=== PATIENT | male | born 1940 | race Caucasian/White ===

== ENCOUNTER 2018-05-05 17:45 | Inpatient (IN) | payer MEDICARE ==
[2018-05-05 20:15] LABS: #Basophils 0.1 thou/uL (0.0-0.2); #Eosinphils 0.2 thou/uL (0.0-0.7); #Lymphocytes 2.3 thou/uL (1.20-3.40); %Basophils 1.4 % (0.0-1.0); %Eosinophils 1.8 % (0.0-10.0); %Lymphocytes 26.9 % (21.0-51.0); %Monocytes 11.7 % (0.0-10.0); %Neutrophils 58.2 % (42.0-75.0); Mean Corpuscular HGB CONC 32.9 g/dL (32.0-36.0); Mean Corpuscular Hemoglobin 30.6 pg (27.0-31.0); Mean Corpuscular Volume 93.3 fL (78.0-98.0); Mean Platelet Volume 7.7 fL (7.4-10.4); Platelet Count 290 thou/uL (130-400); RBC Distribution Width 12.3 % (11.5-14.5); Red Blood Cell (RBC) Count 4.88 mill/uL (4.70-6.10); White Blood Cell (WBC) Count 8.7 thou/uL (4.8-10.8)
[2018-05-05 20:26] LABS: Globulin 3.5 g/dL (2.4-3.5); Protein, Total 7.3 g/dL (5.8-8.1)
[2018-05-05 20:27] LABS: ALT (SGPT) 28 U/L (8-55); AST (SGOT) 23 U/L (5-34); Albumin 3.9 g/dL (3.4-4.8); Alkaline Phosphatase 133 U/L (40-150); Anion Gap 15 mmol/L (10-20); BUN (Urea Nitrogen) 38 mg/dL (8.4-25.7); Bilirubin, Total 0.3 mg/dL (0.2-1.2); Calc. Creatinine Clearance 0 mL/min (70-130); Calcium 9.8 mg/dL (7.8-10.44); Carbon Dioxide 23 mmol/L (23-31); Chloride 100 mmol/L (98-107); Estimated GFR-MDRD 36; Glucose 286 mg/dL (83-110); Potassium 4.5 mmol/L (3.5-5.1); Sodium 133 mmol/L (136-145)
[2018-05-05] MEDS ORDERED: Piperacillin/Tazobactam 4.5 GM VIAL ONE (21:13)
[2018-05-05] MEDS ORDERED: HYDROcodone/Acetaminophen 10/325 mg Tablet ONE (22:02)
--- NOTE | 2018-05-05 22:31 | RAD ---
THREE VIEWS LEFT FOOT: 05/05/18 HISTORY: Left foot pain. Diabetic ulcer of the left big toe. FINDINGS: There is lucency and subcutaneous soft tissue swelling seen at the medial aspect of the left great to e likely related to patient's known laceration. No obvious osseous destruction is seen in this region . No fracture or dislocation is identified. A posterior calcaneal enthesophyte is seen. vascular calc ifications are seen at the ankle. IMPRESSION: 1. Findings likely related to patient's known soft tissue ulceration at the plantar and medial a spect of the left great toe. No osseous destruction is seen to suggest osteomyelitis based on this ex am. 2. No acute osseous abnormality. 3. Vascular calcifications. POS: FOZIA
[2018-05-05] MEDS ORDERED: Ondansetron PF 4 MG/2 ML Vial IVP PRN (23:10)
[2018-05-05] MEDS ORDERED: Ondansetron ODT 4 MG TAB SL PRN (23:10)
[2018-05-05] MEDS ORDERED: Sodium Chloride 0.9% 1,000 ML IV SCH (23:10)
[2018-05-05] MEDS ORDERED: Vancomycin HCl 1 GM in Premix Bag 1 BAG IVPB SCH (23:45)
[2018-05-05 23:58] VITALS: BMI 29.3
[2018-05-06] MEDS ORDERED: Calcium Carbonate 500 MG ChewTAB PO PRN (01:31)
[2018-05-06] MEDS ORDERED: Dextrose 5% in Water 1,000 ML IV PRN (01:31)
[2018-05-06] MEDS ORDERED: Bisacodyl 5 MG TAB PO PRN (01:31)
[2018-05-06] MEDS ORDERED: Dextrose 50% Abboject 50 ML SYRINGE SLOW IVP PRN (01:31)
[2018-05-06] MEDS ORDERED: Senokot S 8.6-50 MG TAB PO PRN (01:31)
--- NOTE | 2018-05-06 02:07 | PDOC.EVN ---
Event Note - Event Note Event Note: h&p dictation #[id number] pt failed outpatient levaquin - here for inpt adm, empiric vanc, pip-abelardo
--- NOTE | 2018-05-06 02:45 | HP ---
PRIMARY CARE PHYSICIAN: Dr. Aidan Harvey. CHIEF COMPLAINT: Left first metatarsal cellulitis. HISTORY OF PRESENT ILLNESS: This is a 77-year-old male with a known history of type 2 diabetes, hypertension, hyperlipidemia, who presents with a chief complaint of infection to his left big toe. The patient states that the infection initially started approximately 3 months ago and initially involved only the bottom aspect of the first metatarsal. However, over the last 3 months it has been progressively worse with increasing discomfort of the great toe, particularly with ambulation. Over the last week, it has been accompanied by erythema and over the last 2 days despite oral Levaquin, it has gotten worse. At the time of my evaluation, the patient has an area of ulceration at the base of the first metatarsal with surrounding erythema that extends circumferentially across the top of that same digit. REVIEW OF SYSTEMS: Constitutional: No significant weight gain or loss. The patient denies any fevers or chills. HEENT: No headaches, vision changes, lightheadedness, or dizziness. Cardiovascular: Denies any chest pain, chest pressure, left-sided arm numbness or tingling. Respiratory: Denies any congestion, cough, shortness of breath, or recent upper respiratory infection. Gastrointestinal: Denies any nausea, vomiting, abdominal pain issues with diarrhea or constipation. Musculoskeletal: Denies any myalgias or arthralgias , other than the left great toe as described above. Genitourinary: Denies any changes in urinary color, quantity, quality, frequency, or odor. Remainder of the review of systems otherwise negative. PAST MEDICAL HISTORY: As per above, significant for; 1. Type 2 diabetes. 2. Hypertension. 3. Hypercholesterolemia. 4. Depression. PAST SURGICAL HISTORY: No prior surgeries. HOME MEDICATIONS: Please see the EMR for full details, patient's current home list includes the following; 1. Insulin 70/30 60 units subcu b.i.d. and a.c. 2. Pravastatin 40 mg p.o. at bedtime. 3. Citalopram 40 mg p.o. daily. 4. Amlodipine 5 mg p.o. daily. 5. Alprazolam 0.5 mg p.o. daily. ALLERGIES: No known drug allergies. FAMILY HISTORY: The patient denies any known family history of recurrent ulcers or infections. SOCIAL HISTORY: The patient is , has active tobacco use, but no alcohol use. Denies any illicit drug use. He states that they have both cats and dogs at home. The dogs are not much of "lickers" but the cats are actually kittens and rather playful, so he is not sure if there may have been any contact between his ulcer and the pets. He indicates his would be his medical decision maker if he is unable to make his own medical decisions. PHYSICAL EXAMINATION: GENERAL: The patient is awake, alert, conversant, in no acute distress, lying in the hospital bed. HEENT: Normocephalic, atraumatic. Equal ocular motions are intact, moist mucous membranes. CARDIOVASCULAR: S1, S2. No murmurs, rubs, or gallops. Pulses 2+ bilateral upper extremities, no pitting pedal edema. RESPIRATORY: Reasonable air movement. No conversational dyspnea. No wheezes, rales, or rhonchi. Grossly clear to auscultation bilaterally. GASTROINTESTINAL: Positive bowel sounds. Soft, nontender to palpation. MUSCULOSKELETAL: Moving all 4 extremities equally. Examination of the first metatarsal of the left foot indicates a small area of erythema that extending from medially to laterally around the top of the foot. The bottom of the metatarsal, there is an area of dried ulceration, perhaps with a layer of eschar noted on top. No active purulence. LABORATORY DATA AND IMAGING: WBC 8.7, hemoglobin 15.0, hematocrit 45.5, platelets 290,000. Sodium 133, potassium 4.5, chloride 100, bicarbonate 23, BUN 38, creatinine 1.82, glucose 286. Lactic acid 1.9, calcium 9.8, total bilirubin 0.3, AST 23, ALT 28, alkaline phosphatase 133. CRP 0.98, total protein 7.3, albumin 3.9. Foot x-ray demonstrates "findings likely related to the patient's known soft tissue ulceration at the plantar and medial aspects of the left great toe. No osseous destruction is seen to suggest osteomyelitis based on this exam. No acute osseous abnormality. Vascular calcifications." ASSESSMENT AND PLAN: A 77-year-old male presenting with cellulitis of the first left metatarsal. 1. Concern for cellulitis/diabetic ulcer in the first left metatarsal. The patient has been started on empiric antibiotics in the emergency department to include vancomycin and piperacillin, tazobactam. Wound Care consultation is appreciated. No evidence at this point in time of osteomyelitis. We will continue to monitor clinically. 2. Type 2 diabetes. Continue the patient on his home 70/30. Continue to serially check the patient's serum glucose with sliding scale insulin as needed. 3. Acute kidney injury, suspect likely prerenal etiology. Gentle hydration with repeat renal function labs in the morning. 4. Diet: Diabetic. 5. Activity: As tolerated. 6. Deep venous thrombosis prophylaxis: Enoxaparin. MTDD
[2018-05-06] MEDS: Piperacillin/Tazobactam 2.25 GM in Sodium Chloride 0.9% 100 ML IVPB SCH ×4 (03:33→20:39)
[2018-05-06] MEDS ORDERED: Piperacillin/Tazobactam 3.375 GM in Sodium Chloride 0.9% 100 ML IVPB SCH (05:00)
[2018-05-06 05:21] LABS: #Basophils 0.1 thou/uL (0.0-0.2); #Eosinphils 0.2 thou/uL (0.0-0.7); #Lymphocytes 2.7 thou/uL (1.20-3.40); #Monocytes 0.9 thou/uL (0.11-0.59); #Neutrophils 4.5 thou/uL (1.40-6.50); %Basophils 1.1 % (0.0-1.0); %Eosinophils 2.6 % (0.0-10.0); %Monocytes 10.9 % (0.0-10.0); %Neutrophils 53.5 % (42.0-75.0); Hemoglobin 13.4 g/dL (14.0-18.0); Mean Corpuscular Hemoglobin 30.6 pg (27.0-31.0); Mean Platelet Volume 8.1 fL (7.4-10.4); Platelet Count 249 thou/uL (130-400); RBC Distribution Width 12.2 % (11.5-14.5); Red Blood Cell (RBC) Count 4.36 mill/uL (4.70-6.10); White Blood Cell (WBC) Count 8.5 thou/uL (4.8-10.8)
[2018-05-06 05:43] LABS: Anion Gap 11 mmol/L (10-20); BUN (Urea Nitrogen) 35 mg/dL (8.4-25.7); Calc. Creatinine Clearance 47 mL/min (70-130); Calcium 8.7 mg/dL (7.8-10.44); Carbon Dioxide 27 mmol/L (23-31); Chloride 102 mmol/L (98-107); Estimated GFR-MDRD 43; Glucose 277 mg/dL (83-110); Potassium 4.7 mmol/L (3.5-5.1); Sodium 135 mmol/L (136-145)
[2018-05-06] MEDS: HumaLOG 300 UNITS/3 ML VIAL SC PRN (06:07)
[2018-05-06] MEDS: Insulin NPH/Reg Insulin Hm 300 UNITS/3 ML VIAL SC SCH ×2 (08:57→17:31)
[2018-05-06] MEDS: Enoxaparin Sodium 40 MG/0.4 ML SYRINGE SC SCH (08:58)
[2018-05-06] MEDS ORDERED: Prevnar 13-Val Conj/PF 0.5 ML SYRINGE IM ONE (09:00)
[2018-05-06] MEDS: Citalopram 20 MG TAB PO SCH (09:01)
[2018-05-06] MEDS: Amlodipine 5 MG TAB PO SCH (09:02)
[2018-05-06] MEDS: ALPRAZolam 0.5 MG TAB PO SCH (09:02)
[2018-05-06] MEDS ORDERED: Vancomycin HCl 1 GM in Premix Bag 1 BAG IVPB SCH (11:00)
--- NOTE | 2018-05-06 14:24 | PDOC.PN ---
- Subjective Encounter Start Date: 05/06/18 Encounter Start Time: 14:22 Mr. Kirkpatrick was seen today in follow-up of a Diabetic foot infection. He says the pain in his toe has improved. He admits his blood glucose has not been well controlled recently. - Objective Resuscitation Status: Resuscitation Status FULL:Full Resuscitation MAR Reviewed: Yes Vital Signs & Weight: Vital Signs (12 hours) Temp Pulse Resp BP BP Pulse Ox 05/06/18 12:00 98.0 F 68 16 92/52 L 95 05/06/18 10:41 102/61 05/06/18 09:02 58 L 05/06/18 08:00 94 L 05/06/18 07:44 98.0 F 58 L 12 94/51 L 94 L 05/06/18 04:40 98.1 F 59 L 20 103/54 L 92 L Weight Weight 193 lb I&O: 05/05/18 05/06/18 05/07/18 06:59 06:59 06:59 Intake Total 675 Balance 675 Result Diagrams: 05/06/18 03:52 05/06/18 03:52 Additional Labs: Accuchecks 05/06/18 05/06/18 05/05/18 11:28 04:44 23:08 POC Glucose 120 H 292 H 231 H Phys Exam - Physical Examination HEENT: PERRLA Respiratory: no wheezing, no rales, no rhonchi, clear to auscultation bilateral Cardiovascular: RRR, no significant murmur, no rub Gastrointestinal: soft, non-tender, no distention, positive bowel sounds Musculoskeletal: no edema, pulses present Pulses present but diminished + First toe left foot, with callous , and erythema Psychiatric: normal affect, A&O x 3 Skin: normal turgor, cap refill <2 seconds Dx/Plan (1) Diabetic ulcer of left foot Code(s): E11.621 - TYPE 2 DIABETES MELLITUS WITH FOOT ULCER; L97.529 - NON- PRESSURE CHRONIC ULCER OTH PRT LEFT FOOT W UNSP SEVERITY Status: Acute (2) Diabetes mellitus, type II, insulin dependent Code(s): E11.9 - TYPE 2 DIABETES MELLITUS WITHOUT COMPLICATIONS; Z79.4 - ASSISTED (CURRENT) USE OF INSULIN Status: Chronic (3) Avdnq-vp-selgwiv kidney injury Code(s): N17.9 - ACUTE KIDNEY FAILURE, UNSPECIFIED; N18.9 - CHRONIC KIDNEY DISEASE, UNSPECIFIED Status: Acute (4) Hypertension Code(s): I10 - ESSENTIAL (PRIMARY) HYPERTENSION Status: Chronic (5) Dyslipidemia Code(s): E78.5 - HYPERLIPIDEMIA, UNSPECIFIED Status: Chronic - Plan * Diabetic foot infection- continue Vancomycin and Zosyn. Will check arterial dopplers to help assess his circulation * Consult Podiatry for possible debridement * DM- blood glucos is a bit labile- will monitor while on his home dose of insulin, and titrate as needed * HTN- blood pressure is a bit low- will Observe, may need to hold Amoldipine .
--- NOTE | 2018-05-06 17:35 | ULT ---
BILATERAL LOWER EXTREMITY ARTERIOVASCULAR DUPLEX INCLUDING COLOR AND SPECTRAL DOPPLER IMAGING: Date: 05/06/18 HISTORY: 77-year-old male with history of diabetic foot infection, left great toe diabetic ulcer. TECHNIQUE: Exam performed bilaterally, including common femoral artery, profunda femoral artery, superficial fem oral artery, popliteal artery, and anterior and posterior tibial arteries and dorsalis pedis arteries . FINDINGS: On the right side, there is biphasic flow down to and including the popliteal artery and anterior tib ial artery with monophasic flow involving the posterior tibial artery, with focal area of increased v elocity in the right posterior tibial artery. On the left side, there is triphasic flow involving the common femoral artery, superficial femoral ar micheline, and popliteal artery, with biphasic flow in the profunda femoral artery. Monophasic flow involv ing the right anterior tibial artery, posterior tibial artery, and dorsalis pedis arteries. 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 Focal high velocity in the right posterior tibial art farida, indicating focal stenosis. Consider follow-up abdominal and bilateral lower extremity CT angiogram for further assessment and to evaluate for more specific areas of focal stenosis, if clinically indicated. POS: JOHNSON
[2018-05-06] MEDS: Atorvastatin Calcium 10 MG TAB PO SCH (20:39)
[2018-05-06] MEDS: Vancomycin HCl 1.25 GM in Sodium Chloride 0.9% 250 ML 250 ML IVPB SCH (22:08)
[2018-05-07] MEDS: Piperacillin/Tazobactam 2.25 GM in Sodium Chloride 0.9% 100 ML IVPB SCH ×3 (03:12→20:41)
[2018-05-07 05:59] LABS: #Basophils 0.1 thou/uL (0.0-0.2); #Eosinphils 0.2 thou/uL (0.0-0.7); #Lymphocytes 2.2 thou/uL (1.20-3.40); #Neutrophils 4.9 thou/uL (1.40-6.50); %Basophils 1.3 % (0.0-1.0); %Eosinophils 2.6 % (0.0-10.0); %Lymphocytes 25.8 % (21.0-51.0); %Monocytes 11.3 % (0.0-10.0); %Neutrophils 59.1 % (42.0-75.0); Hemoglobin 13.9 g/dL (14.0-18.0); Mean Corpuscular HGB CONC 32.4 g/dL (32.0-36.0); Mean Corpuscular Hemoglobin 30.5 pg (27.0-31.0); Mean Platelet Volume 8.2 fL (7.4-10.4); Platelet Count 245 thou/uL (130-400); RBC Distribution Width 12.4 % (11.5-14.5); Red Blood Cell (RBC) Count 4.57 mill/uL (4.70-6.10); White Blood Cell (WBC) Count 8.3 thou/uL (4.8-10.8)
[2018-05-07] MEDS: HumaLOG 300 UNITS/3 ML VIAL SC PRN (06:06)
[2018-05-07 06:27] LABS: Anion Gap 11 mmol/L (10-20); BUN (Urea Nitrogen) 17 mg/dL (8.4-25.7); Calc. Creatinine Clearance 55 mL/min (70-130); Calcium 8.6 mg/dL (7.8-10.44); Carbon Dioxide 26 mmol/L (23-31); Chloride 104 mmol/L (98-107); Estimated GFR-MDRD 51; Glucose 322 mg/dL (83-110); Potassium 4.1 mmol/L (3.5-5.1); Sodium 137 mmol/L (136-145)
[2018-05-07] MEDS: Insulin NPH/Reg Insulin Hm 300 UNITS/3 ML VIAL SC SCH ×2 (07:44→16:32)
[2018-05-07] MEDS: Citalopram 20 MG TAB PO SCH (07:46)
[2018-05-07] MEDS: Enoxaparin Sodium 40 MG/0.4 ML SYRINGE SC SCH (07:46)
[2018-05-07] MEDS: Amlodipine 5 MG TAB PO SCH (07:47)
[2018-05-07] MEDS: ALPRAZolam 0.5 MG TAB PO SCH (07:47)
--- NOTE | 2018-05-07 09:48 | CON ---
DATE OF CONSULTATION: 05/07/2018 REASON FOR CONSULTATION: Left great toe ulceration. HISTORY OF PRESENT ILLNESS: A 77-year-old male seen at bedside today in his hospital bed for left great toe ulceration. He states that the wound has been present for approximately 4 months. He had been having his daughter clean it and dress it with dressings, but over the last week it has become exquisitely tender, more erythematous and swollen, so he came to the hospital and was admitted on 05/05/2018 for IV antibiotics. He states that since he has been on IV antibiotics he has improvement in the redness and the pain is no longer present. He does have a history of diabetes with peripheral neuropathy. PAST MEDICAL HISTORY: 1. Type 2 diabetes. 2. Hypertension. 3. Hypercholesterolemia. 4. Depression. PAST SURGICAL HISTORY: No prior surgeries. HOME MEDICATIONS: 1. Insulin. 2. Pravastatin. 3. Citalopram. 4. Amlodipine. 5. Alprazolam. ALLERGIES: No known drug allergies. FAMILY HISTORY: The patient denies any known family history of recurrent ulcers or infections. SOCIAL HISTORY: The patient is , has active tobacco use, but no alcohol use, denies any illicit drug use. REVIEW OF SYSTEMS: CONSTITUTIONAL: Denies nausea, vomiting, fevers, chills at this time. PHYSICAL EXAMINATION: VITAL SIGNS: Temperature 98.2, pulse 68, respirations 22, blood pressure 127/ 62. GENERAL: The patient is seen at bedside in no acute distress. He is alert and oriented x3. CARDIOVASCULAR: Dorsalis pedis, posterior tibial pulses are faint to the left lower extremity. The skin temperature is cool to the touch. Capillary fill time is less than 3 seconds to the distal aspect of the toes. NEUROLOGICAL: Light touch protective threshold is absent globally to the left foot. DERMATOLOGIC: There is an ulceration to the plantar medial aspect of the left hallux that measures approximately 0.6 cm x 0.6 cm x 0.2 cm of depth. It had a hyperkeratotic covering with some slight maceration tissue surrounding the wound. The wound does not probe to deep tendon or bone. There is some mild erythema to the dorsal aspect of the toe extending from the wound area, but does not extend onto the foot. No areas of fluctuance, crepitus. X-rays were reviewed. No signs of osteomyelitis underlying the ulceration site. ASSESSMENT: 1. Non-pressure chronic ulceration to the left great toe. 2. Diabetes with peripheral neuropathy as well as peripheral vascular disease. PLAN: 1. Full thickness debridement of the wound base was performed today, the subcutaneous tissue layer removed all nonviable tissue and biofilm from the wound base as well as hyperkeratotic tissue from the surrounding tissues with a sterile 15 blade. The patient tolerated the procedure well. This was performed at bedside. Bandages were applied including gauze and tape today. 2. Writing wound care orders for patient to have the wound cleaned on a daily basis with normal saline or wound cleanser and then applying a Promogran dressing to the wound base with secondary gauze and tape dressing. This should be done on a daily basis and should continue on discharge. 3. The patient should follow up in the Wound Clinic as an outpatient upon discharge. 4. No surgical debridement in the operating room is necessary at this time if he is stabil on oral antibiotics he may be discharged as far as his foot goes and follow up with me in the wound clinic. 5. I would recommend a cardiovascular consult with athletic scout or the cardiovascular surgeon for further evaluation of his peripheral vascular disease to determine if any intervention is warranted. Thank you for the consultation. LYN
--- NOTE | 2018-05-07 15:37 | PDOC.PN ---
- Subjective Encounter Start Date: 05/07/18 Encounter Start Time: 15:35 Mr. Kirkpatrick was seen today in follow-up of diabetic foot infection. He says his toe is feeling much inproved. He has a lot less pain when walking. - Objective Resuscitation Status: Resuscitation Status FULL:Full Resuscitation MAR Reviewed: Yes Vital Signs & Weight: Vital Signs (12 hours) Temp Pulse Resp BP Pulse Ox 05/07/18 08:00 98.2 F 68 22 H 127/62 95 05/07/18 07:47 62 05/07/18 04:00 98.1 F 62 20 137/74 94 L Weight Admit Weight 193 lb Weight 193 lb I&O: 05/06/18 05/07/18 05/08/18 06:59 06:59 06:59 Intake Total 675 1640 Balance 675 1640 Result Diagrams: 05/07/18 03:47 05/07/18 03:47 Additional Labs: Accuchecks 05/07/18 05/07/18 05/06/18 11:58 04:01 19:21 POC Glucose 73 300 H 227 H 05/06/18 17:11 POC Glucose 78 Phys Exam - Physical Examination Respiratory: no wheezing, no rales, no rhonchi, clear to auscultation bilateral Cardiovascular: RRR, no significant murmur, no rub Gastrointestinal: soft, non-tender, no distention, positive bowel sounds Musculoskeletal: pulses present, edema present Left toes, less erythema, post debridement Dx/Plan (1) Diabetic ulcer of left foot Code(s): E11.621 - TYPE 2 DIABETES MELLITUS WITH FOOT ULCER; L97.529 - NON- PRESSURE CHRONIC ULCER OTH PRT LEFT FOOT W UNSP SEVERITY Status: Acute (2) Peripheral vascular disease in diabetes mellitus Code(s): E11.51 - TYPE 2 DIABETES W DIABETIC PERIPHERAL ANGIOPATH W/O GANGRENE Status: Acute (3) Diabetes mellitus, type II, insulin dependent Code(s): E11.9 - TYPE 2 DIABETES MELLITUS WITHOUT COMPLICATIONS; Z79.4 - SENIOR PAYROLL MANAGER (CURRENT) USE OF INSULIN Status: Chronic (4) Qtmhl-og-wnonjeu kidney injury Code(s): N17.9 - ACUTE KIDNEY FAILURE, UNSPECIFIED; N18.9 - CHRONIC KIDNEY DISEASE, UNSPECIFIED Status: Acute (5) Hypertension Code(s): I10 - ESSENTIAL (PRIMARY) HYPERTENSION Status: Chronic (6) Dyslipidemia Code(s): E78.5 - HYPERLIPIDEMIA, UNSPECIFIED Status: Chronic - Plan * Diabetic toe infection- improved- will continue IV antibiotics one more day * Podiatry input appreciated * Peripheral Vascular disease- Arterial ultrasound results were noted- will consult Vascular Surgery Prior to obtaining CTA , due to his renal function- * DM- uncontrolled- will increase his usual dose of insulin * HTN- blood pressure is controlled * Home after Vascular surgery evaluation.
[2018-05-07] MEDS: Atorvastatin Calcium 10 MG TAB PO SCH (20:41)
[2018-05-07] MEDS: diphenhydrAMINE 25 MG CAP PO PRN (20:46)
[2018-05-07] MEDS ORDERED: Vancomycin HCl 1.5 GM in Sodium Chloride 0.9% 250 ML 300 ML IVPB SCH (22:00)
[2018-05-07] MEDS: Vancomycin HCl 1.25 GM in Sodium Chloride 0.9% 250 ML 250 ML IVPB SCH (22:56)
[2018-05-08] MEDS: Piperacillin/Tazobactam 2.25 GM in Sodium Chloride 0.9% 100 ML IVPB SCH ×4 (04:14→20:29)
[2018-05-08] MEDS ORDERED: Iopamidol 370 76% 50 ML VIAL FS ONE (08:06)
[2018-05-08] MEDS: Insulin NPH/Reg Insulin Hm 300 UNITS/3 ML VIAL SC SCH ×2 (09:11→17:29)
[2018-05-08] MEDS: ALPRAZolam 0.5 MG TAB PO SCH (09:11)
[2018-05-08] MEDS: Citalopram 20 MG TAB PO SCH (09:11)
[2018-05-08] MEDS: Enoxaparin Sodium 40 MG/0.4 ML SYRINGE SC SCH (09:12)
[2018-05-08] MEDS: Amlodipine 5 MG TAB PO SCH (09:13)
[2018-05-08] MEDS: Vancomycin HCl 1 GM in Premix Bag 1 BAG IVPB SCH ×2 (11:11→21:53)
--- NOTE | 2018-05-08 11:14 | CON ---
DATE OF CONSULTATION: 05/08/2018 HISTORY OF PRESENT ILLNESS: Mr. Kirkpatrick is a pleasant 77-year-old gentleman who has no previous periphe ral vascular or cardiac history. He was admitted after having longstanding left great toe erythema, induration, and ulceration. He underwent a debridement of his foot. He has been on IV antibiotics w ith what he states is a high level of improvement of his symptomatology. He has had an ultrasound pe rformed of the left leg which showed multifocal disease of the SFA, popliteal, and tibial arteries on the left. I have been asked to see him to discuss potential revascularization options. The patient has no history of coronary artery disease, abdominal aortic aneurysm, carotid disease, or peripheral vascular disease. The patient has never smoked. PAST MEDICAL HISTORY: 1. Hypertension. 2. Hypercholesterolemia. 3. Type 2 diabetes mellitus. 4. Depression. PAST SURGICAL HISTORY: None. CURRENT MEDICATIONS: At home, 1. Insulin 70/30, 60 units b.i.d. 2. Pravastatin 40 mg at bedtime. 3. Citalopram 40 mg every day. 4. Amlodipine 5 mg every day. 5. Alprazolam 0.5 mg p.r.n. ALLERGIES: None. REVIEW OF SYSTEMS: Ten-point review of systems is negative except above. PHYSICAL EXAMINATION: GENERAL: This is a well-developed, well-nourished man, resting comfortably in bed. VITAL SIGNS: Height 5 feet 8 inches, weight is 193 pounds, temperature is 98.2, pulse is 64 and regu lar, blood pressure is 119/69. HEENT: Sclerae nonicteric. Pupils equal and round bilaterally. NECK: Supple without adenopathy. He has no carotid bruits. CHEST: Clear bilaterally. HEART: Rhythm is regular without murmur. ABDOMEN: Soft and nontender. EXTREMITIES: No cyanosis, clubbing or edema. Left great toe is wrapped. VASCULAR: Palpable carotid, radial, and femoral pulses bilaterally. On the right, I can palpate a d orsalis pedis pulse. On the left, I can only Doppler dorsalis pedis and posterior tibial pulses. ASSESSMENT AND PLAN: Peripheral vascular disease with left great toe ulceration that has been debrid ed and improved on IV antibiotics. I have discussed angiograms with him and potential intervention. He is agreeable to proceed. We will plan to perform these this morning. His creatinine is 1.35 cortez t was performed on 05/07/2018. Hemoglobin is 13.9, platelet count is 245,000.
[2018-05-08] MEDS ORDERED: Midazolam HCl 2 mg/2 ml Vial ONE (11:35)
[2018-05-08] MEDS ORDERED: Fentanyl 100 MCG/2 ML VIAL ONE (11:35)
[2018-05-08] MEDS ORDERED: Heparin 10,000 UNITS/1 ML VIAL ONE (11:52)
[2018-05-08] MEDS ORDERED: Protamine Sulfate 50 MG/5 ML VIAL ONE (12:41)
--- NOTE | 2018-05-08 14:52 | OP ---
DATE OF OPERATION: 05/08/2018 PREOPERATIVE DIAGNOSES: Peripheral vascular disease with left great toe ulceration and cellulitis. POSTOPERATIVE DIAGNOSES: Peripheral vascular disease with left great toe ulceration and cellulitis. PROCEDURES: 1. Abdominal aortogram. 2. Left external iliac artery angiogram. 3. Left SFA angiogram. 4. Left popliteal artery angiogram. 5. Left tibioperoneal trunk angiogram. 6. Left posterior tibial artery MANAGER LABOR DELIVERY with a 3 x 20 [place] balloon taken to 8 mmHg for 2 minutes in 2 separate locations. 7. US guided arterial access 8. Proglide closure TOTAL CONTRAST: 20 mL. TOTAL FLUORO TIME: 4.6 minutes. DESCRIPTION OF PROCEDURE: After consent was obtained, the patient was brought to the medical laboratory technician, placed in supine position on the medical laboratory technician table. Appropriate anesthetic monitor was placed. The patient was given 1 mg Versed and 25 mcg fentanyl. Using ultrasound guidance, the right groin was anesthetized with 1% lidocaine. Percutaneous access to common femoral artery was obtained using ultrasound guidance. Micropuncture sheath was placed. Micropuncture sheath was then exchanged for a 5-Macedonian sheath. Contra catheter was positioned in the upper abdominal aorta. Hand-injected aortogram was performed illuminating the aorta and iliac vasculature. There was no occlusive disease. Contra catheter was guided over the aortic bifurcation down into the external iliac artery. Digital angiography was used to brant contrast from groin down toward the foot. Common femoral, superficial femoral, profunda femoris, and popliteal arteries were all free of disease. Below the knee, the anterior tibial artery was occluded chronically. Peroneal artery was patent to the foot. Posterior tibial artery was patent with a critical stenosis at its midpoint. The patient was given 5000 units of heparin followed by 2500 units later in the case. The 5 -Macedonian sheath was exchanged over a [place] guidewire for a 5-Macedonian destination sheath. Its tip was positioned in the superficial femoral artery. An angled glide catheter was guided down into the popliteal artery. Using subtraction angiography, hand-injected arteriogram performed illuminating the popliteal and tibioperoneal arteries. The angled glide catheter was used to guide 0.14 loose wire into the posterior tibial artery down past the area of near occlusion into the distal posterior tibial artery. Intraluminal location was performed with the tip of the catheter and the tip of the peroneal trunk with a hand-injected arteriogram. A 3 x 20 [place] balloon was selected and positioned over the area of near occlusion. Balloon was inflated to 8 mmHg. This was held for 2 minutes. Balloon was backed approximately 2 cm in the artery and again inflated covering the complete area of near occlusion. Followup angiogram showed an excellent result. Catheters and guidewires were removed. A [employer] guidewire was replaced through the sheath. Sheath was backed over the aortic bifurcation and removed. A ProGlide was used to close the artery. Good hemostasis was obtained. The patient was given 25 mg of protamine. Manual pressure was held to complete hemostasis for a couple of minutes. The patient was transferred to the recovery area in stable condition. LYN
--- NOTE | 2018-05-08 19:41 | PDOC.PN ---
- Subjective Encounter Start Date: 05/08/18 Encounter Start Time: 19:39 Subjective: nsg notes rev, terry ovn, no new c/o feels that his toe is much better -: in fact, he can now ambulate without pain and without his cane -: seen s/p angiography - Objective Resuscitation Status: Resuscitation Status FULL:Full Resuscitation Vital Signs & Weight: Vital Signs (12 hours) Temp Pulse Resp BP BP Pulse Ox 05/08/18 16:50 98.0 F 84 14 137/73 94 L 05/08/18 09:13 64 119/69 05/08/18 08:08 98.2 F 64 18 110/64 94 L 05/08/18 08:00 94 L Weight Admit Weight 193 lb Weight 193 lb I&O: 05/07/18 05/08/18 05/09/18 06:59 06:59 06:59 Intake Total 1640 2400 2540 Balance 1640 2400 2540 Result Diagrams: 05/07/18 03:47 05/07/18 03:47 Additional Labs: Accuchecks 05/08/18 05/08/18 05/07/18 16:47 05:05 20:41 POC Glucose 134 H 142 H 190 H Phys Exam - Physical Examination lying in hospital bed Dx/Plan - Plan - Physical Examination Respiratory: no wheezing, no rales, no rhonchi, clear to auscultation bilateral Cardiovascular: RRR, no significant murmur, no rub Gastrointestinal: soft, non-tender, no distention, positive bowel sounds Musculoskeletal: pulses present, edema present Left toes, less erythema, post debridement, base is c/d/i Dx/Plan (1) Diabetic ulcer of left foot Code(s): E11.621 - TYPE 2 DIABETES MELLITUS WITH FOOT ULCER; L97.529 - NON- PRESSURE CHRONIC ULCER OTH PRT LEFT FOOT W UNSP SEVERITY Status: Acute improved continue with IV abx s/p angiography apprec pod c/s (2) Peripheral vascular disease in diabetes mellitus Code(s): E11.51 - TYPE 2 DIABETES W DIABETIC PERIPHERAL ANGIOPATH W/O GANGRENE Status: Acute apprec vasc surg c/s (3) Diabetes mellitus, type II, insulin dependent Code(s): E11.9 - TYPE 2 DIABETES MELLITUS WITHOUT COMPLICATIONS; Z79.4 - TEAROOM HOST (CURRENT) USE OF INSULIN Status: Chronic increased insulin continue to monitor glc (4) Nmfas-fu-birdrpv kidney injury Code(s): N17.9 - ACUTE KIDNEY FAILURE, UNSPECIFIED; N18.9 - CHRONIC KIDNEY DISEASE, UNSPECIFIED Status: Acute close monitoring post angiography (5) Hypertension Code(s): I10 - ESSENTIAL (PRIMARY) HYPERTENSION Status: Chronic stable and controlled (6) Dyslipidemia Code(s): E78.5 - HYPERLIPIDEMIA, UNSPECIFIED Status: Chronic - Plan diet: diabetic activity: as skylar dvt ppx Review of Systems - Medications/Allergies Allergies/Adverse Reactions: Allergies Allergy/AdvReac Type Severity Reaction Status Date / Time No Known Drug Allergies Allergy Verified 05/05/18 23:53 Medications: Current Medications Alprazolam (Xanax) 0.5 mg PO DAILY [facility] Last Admin: 05/08/18 09:11 Dose: 0.5 mg Amlodipine Besylate (Norvasc) 5 mg PO DAILY [facility] Last Admin: 05/08/18 09:13 Dose: 5 mg Atorvastatin Calcium (Lipitor) 10 mg PO HS [facility] Last Admin: 05/07/18 20:41 Dose: 10 mg Bisacodyl (Dulcolax) 10 mg PO DAILYPRN PRN PRN Reason: Constipation Calcium Carbonate (Tums) 1,000 mg PO Q4H PRN PRN Reason: Heartburn or Indigestion Citalopram Hydrobromide (Celexa) 40 mg PO DAILY [facility] Last Admin: 05/08/18 09:11 Dose: 40 mg Dextrose/Water (Dextrose 50%) 25 gm SLOW IVP PRN PRN PRN Reason: Hypoglycemia Diphenhydramine HCl (Benadryl) 25 mg PO HSPRN PRN PRN Reason: .SLEEP Last Admin: 05/07/18 20:46 Dose: 25 mg Enoxaparin Sodium (Lovenox) 40 mg SC 0900 [facility] Last Admin: 05/08/18 09:12 Dose: 40 mg Glucagon (Glucagon) 1 mg IM PRN PRN PRN Reason: Hypoglycemia Dextrose/Water (D5w) 1,000 mls @ 0 mls/hr IV .Q0M PRN PRN Reason: Hypoglycemia Piperacillin Sod/Tazobactam (Sod 2.25 gm/ Sodium Chloride) 100 mls @ 200 mls/ hr IVPB 0300,0900,1500,2100 [facility] Last Admin: 05/08/18 14:59 Dose: 100 mls Vancomycin HCl 1 gm/ Device 200 mls @ 200 mls/hr IVPB 1000,2200 [facility] Last Admin: 05/08/18 11:11 Dose: 200 mls Insulin Human Isoph/Insulin Regular (Humulin 70/30) 70 units SC BID-AC [facility] Last Admin: 05/08/18 17:29 Dose: 70 unit Insulin Human Lispro (Humalog) 0 units SC .MILD SLIDING SCALE PRN PRN Reason: Mild Correctional Scale Last Admin: 05/07/18 06:06 Dose: 4 unit Miscellaneous Medication (Pharmacy To Dose) 1 each IVPB ONE PRN PRN Reason: Pharmacy to dose Stop: 05/16/18 01:54 [employer] Miscellaneous Medication (Pharmacy To Dose) 1 each IVPB ONE PRN PRN Reason: Pharmacy to dose Stop: 05/16/18 01:55 [employer] Senna/Docusate Sodium (Senokot S) 2 tab PO BIDPRN PRN PRN Reason: Constipation Sodium Chloride (Flush - Normal Saline) 10 ml IVF Q12HR [facility] Last Admin: 05/08/18 09:14 Dose: 10 ml Sodium Chloride (Flush - Normal Saline) 10 ml IVF PRN PRN PRN Reason: Saline Flush
[2018-05-08] MEDS: diphenhydrAMINE 25 MG CAP PO PRN (20:29)
[2018-05-08] MEDS: Atorvastatin Calcium 10 MG TAB PO SCH (20:29)
[2018-05-09] MEDS: Piperacillin/Tazobactam 2.25 GM in Sodium Chloride 0.9% 100 ML IVPB SCH ×4 (02:59→20:37)
[2018-05-09] MEDS: HumaLOG 300 UNITS/3 ML VIAL SC PRN (04:28)
[2018-05-09] MEDS: ALPRAZolam 0.5 MG TAB PO SCH (07:25)
[2018-05-09] MEDS: Citalopram 20 MG TAB PO SCH (07:25)
[2018-05-09] MEDS: Amlodipine 5 MG TAB PO SCH (07:25)
[2018-05-09] MEDS: Insulin NPH/Reg Insulin Hm 300 UNITS/3 ML VIAL SC SCH ×2 (07:26→16:18)
[2018-05-09] MEDS: Enoxaparin Sodium 40 MG/0.4 ML SYRINGE SC SCH (07:32)
--- NOTE | 2018-05-09 08:53 | PDOC.PN ---
- Subjective Encounter Start Date: 05/09/18 Encounter Start Time: 08:50 Subjective: nsg notes rev, terry ovn, slept ovn, was easily aroused from sleep this AM -: no new pain, no new c/o, interested to know when he might be able to go -: home - Objective Resuscitation Status: Resuscitation Status FULL:Full Resuscitation Vital Signs & Weight: Vital Signs (12 hours) Temp Pulse Resp BP Pulse Ox 05/09/18 07:25 64 05/09/18 07:13 98.1 F 64 18 111/64 94 L Weight Admit Weight 193 lb Weight 193 lb I&O: 05/08/18 05/09/18 05/10/18 06:59 06:59 06:59 Intake Total 2400 2540 Balance 2400 2540 Result Diagrams: 05/07/18 03:47 05/07/18 03:47 Additional Labs: Accuchecks 05/08/18 05/08/18 20:18 16:47 POC Glucose 116 H 134 H Phys Exam - Physical Examination lying in the hospital bed Dx/Plan - Plan Physical Examination Respiratory: no wheezing, no rales, no rhonchi, clear to auscultation bilateral Cardiovascular: RRR, no significant murmur, no rub Gastrointestinal: soft, non-tender, no distention, positive bowel sounds Musculoskeletal: pulses present, edema present Left toes, area of erythema unchanged compared to yesterday but subjectively "darker" in coloration, post debridement, base is c/d/i Dx/Plan (1) Diabetic ulcer of left foot Code(s): E11.621 - TYPE 2 DIABETES MELLITUS WITH FOOT ULCER; L97.529 - NON- PRESSURE CHRONIC ULCER OTH PRT LEFT FOOT W UNSP SEVERITY Status: Acute clinically improved - if continued improvement, will attempt transition to oral antibiotics pt's related pain from the cellulitis is also significantly improved - pt is now ambulating w/o cane which he needed on admission continue with IV abx s/p angiography (d1 post procedure) apprec pod c/s (2) Peripheral vascular disease in diabetes mellitus Code(s): E11.51 - TYPE 2 DIABETES W DIABETIC PERIPHERAL ANGIOPATH W/O GANGRENE Status: Acute apprec vasc surg c/s (3) Diabetes mellitus, type II, insulin dependent Code(s): E11.9 - TYPE 2 DIABETES MELLITUS WITHOUT COMPLICATIONS; Z79.4 - GROUP HOME (CURRENT) USE OF INSULIN Status: Chronic increased insulin compared to home baseline currently unclear if the increased insulin requirement is 2/2 active infection or represents a longer term need to change chronic regimen continue to monitor glc (4) Wlrsb-rx-xkkiddz kidney injury Code(s): N17.9 - ACUTE KIDNEY FAILURE, UNSPECIFIED; N18.9 - CHRONIC KIDNEY DISEASE, UNSPECIFIED Status: Acute close monitoring post angiography (5) Hypertension Code(s): I10 - ESSENTIAL (PRIMARY) HYPERTENSION Status: Chronic stable and controlled (6) Dyslipidemia Code(s): E78.5 - HYPERLIPIDEMIA, UNSPECIFIED Status: Chronic - Plan diet: diabetic activity: as skylar dvt ppx d/w pt and his bedside nsg
[2018-05-09 09:07] LABS: Anion Gap 12 mmol/L (10-20); BUN (Urea Nitrogen) 9 mg/dL (8.4-25.7); Calc. Creatinine Clearance 63 mL/min (70-130); Calcium 8.7 mg/dL (7.8-10.44); Carbon Dioxide 27 mmol/L (23-31); Chloride 105 mmol/L (98-107); Estimated GFR-MDRD 60; Glucose 154 mg/dL (83-110); Potassium 3.5 mmol/L (3.5-5.1); Sodium 140 mmol/L (136-145)
[2018-05-09] MEDS: Vancomycin HCl 1 GM in Premix Bag 1 BAG IVPB SCH ×2 (09:56→23:31)
[2018-05-09] MEDS: diphenhydrAMINE 25 MG CAP PO PRN (20:37)
[2018-05-09] MEDS ORDERED: Atorvastatin Calcium 20 MG TAB PO SCH (21:00)
[2018-05-10] MEDS: Piperacillin/Tazobactam 2.25 GM in Sodium Chloride 0.9% 100 ML IVPB SCH ×2 (03:55→08:32)
[2018-05-10 07:42] VITALS: BP 146/70; TEMP 98.4
[2018-05-10] MEDS: Enoxaparin Sodium 40 MG/0.4 ML SYRINGE SC SCH (08:30)
[2018-05-10] MEDS: Citalopram 20 MG TAB PO SCH (08:31)
[2018-05-10] MEDS: ALPRAZolam 0.5 MG TAB PO SCH (08:31)
[2018-05-10] MEDS: Amlodipine 5 MG TAB PO SCH (08:31)
[2018-05-10] MEDS: Insulin NPH/Reg Insulin Hm 300 UNITS/3 ML VIAL SC SCH (08:33)
[2018-05-10] MEDS: Vancomycin HCl 1 GM in Premix Bag 1 BAG IVPB SCH (08:35)
[2018-05-10] MEDS ORDERED: Aspirin 325 mg Enteric Coated Tablet PO SCH (09:00)
--- NOTE | 2018-05-10 12:36 | PQF ---
DATE: 05-10-18 ATTN: DR. ARTHUR DU Please exercise your independent, professional judgment in responding to the clarification form. Clinical indicators are provided on the bottom of this form for your review Please check appropriate box(s): [ x ] Excisional Debridement: 24377 [ x ] Excised [ ] Cut away [ ] Other: Depth / layer: (deepest layer of debridement): [ ] Skin[ x ] SubQ Tissue [ ] Fascia [ ] Muscle [ ] Tendon [ ] Bone Appearance of wound: (e.g., down to fresh bleeding tissue, etc.)__ _bleeding granular wound base Margins: (please specify): / x x Instruments used: [ ] Scissors [ x ] Scalpel [ ] Curette [ ] Soft tissue clipper [ ] Other: [ ] Non-excisional Debridement: (Removal by flushing, brushing, chemical, or washing) Depth / layer: (deepest layer of debridement): [ ] Skin[ ] Subcutaneous [ ] Fascia [ ] Muscle [ ] Tendon [ ] Bone [ ] Incision and Drainage only (No Debridement): Depth:[ ] Skin [ ] Subcutaneous [ ] Fascia [ ] Muscle [ ] Tendon [ ] Bone [ ] Other procedure diagnosis [ ] Unable to determine For continuity of documentation, please document condition throughout progress notes and discharge summary. Thank You. CLINICAL INDICATORS - SIGNS / SYMPTOMS / LABS CONSULT NOTE DR. DU 05-07-18: FULL THICKNESS DEBRIDEMENT OF THE WOUND BASE WAS PERFORMED TODAY, THE SUBCUTANEOUS TISSUE LAYER REMOVED ALL NONVIABLE TISSUE AND BIOFILM FROM THE WOUND BASE WELL HYPERKERATOTIC TISSUE FROM THE SURROUNDING TISSUES WITH A STERILE 15 BLADE RISK FACTORS: CONSULT NOTE DR. DU 05-07-18: NON PRESSURE ULCERATION TO THE LEFT GREAT TOE, DIABETES WITH PERIPHERAL NEUROPATHY WELL PVD TREATMENTS: DR. DU PN 05-07-18: FULL THICKNESS DEBRIDEMENT OF THE WOUND BASE PERFORMED TODAY, THIS WAS PERFORMED AT BEDSIDE. (This form is maintained as a part of the permanent medical record) 2014 [employer]. All Rights Reserved Rufina Beke, RN [email or web address] Office: [phone] [facility]Whit
== END 2018-05-10 16:37 | disposition home or self-care (01) | DRG 253 ==
LOC: ERS 17:45 → T4-A 20:50
PROVIDERS: ADMIT Internal Medicine; ATTEND Internal Medicine
PROC: 0JBR0ZZ Excision of Left Foot Subcutaneous Tissue and Fascia, Open Approach (ICD-10-PCS; 2018-05-07)
PROC: 047S3ZZ Dilation of Left Posterior Tibial Artery, Percutaneous Approach (ICD-10-PCS; principal; 2018-05-08)
PROC: B4101ZZ Fluoroscopy of Abdominal Aorta using Low Osmolar Contrast (ICD-10-PCS; 2018-05-08)
PROC: B41G1ZZ Fluoroscopy of Left Lower Extremity Arteries using Low Osmolar Contrast (ICD-10-PCS; 2018-05-08)
DX: E11.51 Type 2 diabetes mellitus with diabetic peripheral angiopathy without gangrene (principal); N17.9 Acute kidney failure, unspecified; L03.032 Cellulitis of left toe; E78.5 Hyperlipidemia, unspecified; E11.621 Type 2 diabetes mellitus with foot ulcer; L97.529 Non-pressure chronic ulcer of other part of left foot with unspecified severity; F32.9 Major depressive disorder, single episode, unspecified; F17.210 Nicotine dependence, cigarettes, uncomplicated; E11.22 Type 2 diabetes mellitus with diabetic chronic kidney disease; I12.9 Hypertensive chronic kidney disease with stage 1 through stage 4 chronic kidney disease, or unspecified chronic kidney disease; N18.9 Chronic kidney disease, unspecified; E11.42 Type 2 diabetes mellitus with diabetic polyneuropathy; Z79.4 Long term (current) use of insulin
CPT/HCPCS: 36415; 36416; 37228; 76942; 80048; 80053; 80202; 83605; 85025; 85347; 85652; 86140; 87040; 87070; 87205; 90471; 90662; 90670; 93923; 96365; 99152; 99153; C1760; C1769; C1887; G0008; G0009; J1644; J1650; J2250; J2543; J2720; J3010; J3370; J7050

== ENCOUNTER 2018-06-18 11:31 | Emergency (ER) | payer MEDICARE ==
[2018-06-18] MEDS ORDERED: Bacitracin Zinc 1 Packet ONE (12:21)
== END 2018-06-18 12:35 | disposition home or self-care (01) ==
LOC: ERS 11:31
DX: E11.622 Type 2 diabetes mellitus with other skin ulcer (principal); L97.529 Non-pressure chronic ulcer of other part of left foot with unspecified severity; I10 Essential (primary) hypertension; Z79.4 Long term (current) use of insulin; Z79.899 Other long term (current) drug therapy; F17.220 Nicotine dependence, chewing tobacco, uncomplicated
CPT/HCPCS: 99283

== ENCOUNTER 2018-07-14 11:03 | Inpatient (IN) | payer MEDICARE ==
[2018-07-14 11:59] LABS: #Basophils 0.1 thou/uL (0.0-0.2); #Eosinphils 0.3 thou/uL (0.0-0.7); #Monocytes 0.9 thou/uL (0.11-0.59); #Neutrophils 8.1 thou/uL (1.40-6.50); %Basophils 0.8 % (0.0-1.0); %Eosinophils 2.4 % (0.0-10.0); %Lymphocytes 17.8 % (21.0-51.0); %Monocytes 8.1 % (0.0-10.0); %Neutrophils 70.9 % (42.0-75.0); Hemoglobin 16.3 g/dL (14.0-18.0); Mean Corpuscular HGB CONC 33.2 g/dL (32.0-36.0); Mean Corpuscular Hemoglobin 31.3 pg (27.0-31.0); Mean Corpuscular Volume 94.4 fL (78.0-98.0); Platelet Count 300 thou/uL (130-400); RBC Distribution Width 12.3 % (11.5-14.5); White Blood Cell (WBC) Count 11.4 thou/uL (4.8-10.8)
[2018-07-14 12:11] LABS: ALT (SGPT) 28 U/L (8-55); AST (SGOT) 22 U/L (5-34); Albumin 4.7 g/dL (3.4-4.8); Alkaline Phosphatase 112 U/L (40-150); Anion Gap 16 mmol/L (10-20); BUN (Urea Nitrogen) 30 mg/dL (8.4-25.7); Bilirubin, Total 0.5 mg/dL (0.2-1.2); Calc. Creatinine Clearance 0 mL/min (70-130); Calcium 10.5 mg/dL (7.8-10.44); Carbon Dioxide 28 mmol/L (23-31); Chloride 102 mmol/L (98-107); Estimated GFR-MDRD 42; Globulin 4.5 g/dL (2.4-3.5); Glucose 105 mg/dL (83-110); Potassium 4.1 mmol/L (3.5-5.1); Protein, Total 9.2 g/dL (5.8-8.1); Sodium 142 mmol/L (136-145)
--- NOTE | 2018-07-14 12:19 | RAD ---
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 Unable to talk this morning. Tingle in fingers. Comparison: 01-12-12 FINDINGS: Cardiac silhouette is magnified by projection. Multiple calcified hilar and mediastinal lymph nodes a re seen with scattered calcified granulomata throughout the lungs bilaterally, also seen on prior exa m. Lungs are otherwise clear. Pulmonary vasculature is within normal limits. No other interval change . IMPRESSION: 1. No acute cardiopulmonary process. 2. Evidence of prior granulomatous disease. POS: [facility]
--- NOTE | 2018-07-14 12:24 | CT ---
CT HEAD NONCONTRAST: Date: 07/14/18 INDICATION: Right upper extremity weakness. FINDINGS: There is no evidence of acute intracranial hemorrhage, mass effect, or midline shift. There is parenc hymal volume loss with mild compensatory dilatation of the ventricular system. Mild chronic ischemic disease is present. No acute fluid level of the imaged paranasal sinuses. IMPRESSION: 1. No acute intracranial hemorrhage or mass effect. 2. Mild chronic ischemic disease. 3. Mild parenchymal volume loss and compensatory dilatation of the ventricular system. POS: [facility]
[2018-07-14] MEDS ORDERED: Ondansetron PF 4 MG/2 ML Vial ONE (13:22)
--- NOTE | 2018-07-14 15:54 | MRI ---
MRI BRAIN WITHOUT CONTRAST: Date: 07/14/18 HISTORY: Increasing numbness and tingling in the right hand with headaches. FINDINGS: Correlation made with the CT scan from same date. Changes of cortical atrophy and chronic small vessel ischemic disease are again seen. There are a few tiny foci of restricted diffusion in the left cerebral hemisphere. No hemorrhage, midline shift, or abnormal extra-axial fluid collections are seen. There is a small amount of fluid in the right mastoi d air cell. IMPRESSION: A few tiny acute lacunar infarctions in the left cerebral hemisphere. POS: [facility]
[2018-07-14] MEDS ORDERED: Acetaminophen 325 MG TAB PO PRN (15:57)
[2018-07-14] MEDS ORDERED: Ondansetron ODT 4 MG TAB SL PRN (15:57)
[2018-07-14] MEDS ORDERED: Ondansetron PF 4 MG/2 ML Vial IVP PRN (15:57)
[2018-07-14] MEDS ORDERED: Sodium Chloride 0.9% 1,000 ML IV SCH (15:57)
--- NOTE | 2018-07-14 16:34 | ULT ---
CAROTID DOPPLER ULTRASOUND: Date: 07/14/18 HISTORY: TIA symptoms. COMPARISON: None. TECHNIQUE: Real-time Acosta scale, color Doppler, and spectral analysis of the extracranial carotid and vertebral arteries was performed. FINDINGS: There are no elevated peak systolic velocities within the internal carotid arteries. Antegrade flow b oth vertebral arteries. Right ICA/CCA ratio is 0.69. Left ICA/CCA ratio is 0.69. IMPRESSION: No hemodynamically significant stenosis. POS: [facility]
[2018-07-14 17:26] VITALS: BMI 30.5
[2018-07-14] MEDS ORDERED: HYDROcodone/Acetaminophen 5/325 mg Tablet PO PRN ×2 (17:37)
[2018-07-14] MEDS ORDERED: Zolpidem Tartrate 5 MG TAB PO PRN (17:37)
[2018-07-14] MEDS ORDERED: Dextrose 5% in Water 1,000 ML IV PRN (17:40)
[2018-07-14] MEDS ORDERED: Dextrose 50% Abboject 50 ML SYRINGE SLOW IVP PRN (17:40)
[2018-07-14] MEDS: HumaLOG 300 UNITS/3 ML VIAL SC PRN (18:08)
--- NOTE | 2018-07-14 18:28 | HP ---
PRIMARY CARE PHYSICIAN: Dr. Harvey. CHIEF COMPLAINT: Impaired speech and weakness primarily on the right side. Reports weakness when walking five days ago. HISTORY OF PRESENT ILLNESS: Mr. Kirkpatrick is a very pleasant 77-year-old male, who presented to the emergency room for evaluation of difficulty while ambulating, right-sided, intermittent weakness, reports his right arm was weak this morning, reports he was dropping things, reports for the last 3 days he has had a headache, has had intermittent problems with speaking. Daughter reports this morning he had about an hour episode, where he was unable to speak at all. Other episodes for the last 3 to 4 days, reports that he has hard time getting words out. Also reports some nausea. Denied any sensory or vision changes. The patient had a brain CT in the emergency room, which showed no acute intracranial hemorrhage or mass effect. Mild chronic ischemic disease. Mild parenchymal volume loss and compensatory dilatation of the ventricular system. Based on symptoms and risk factors, the patient was admitted to the observation unit for further management. PAST MEDICAL HISTORY: Significant for type 2 diabetes, hypertension, hypercholesteremia, and depression. PAST SURGICAL HISTORY: The patient reports having an appendectomy, has had angioplasty on his left leg. ALLERGIES: NO KNOWN DRUG ALLERGIES. FAMILY HISTORY: The patient denies known family history of any cardiac or neurological disorders. SOCIAL HISTORY: The patient is . Active tobacco use. No alcohol use. Denies any illicit drug use. MEDICATIONS: Include; 1. Amlodipine 10 mg p.o. daily. 2. Novolin 70/30 60 units subcu b.i.d. 3. Metoprolol 25 mg p.o. once a day. 4. Celexa 40 mg p.o. once a day. REVIEW OF SYSTEMS: CONSTITUTIONAL: The patient denies chills, denies fever. HEENT: Eyes, denies any eye discharge or vision changes. ENT, denies sore throat or rhinorrhea. CARDIOVASCULAR: Denies any chest pain or palpitations. RESPIRATORY: Denies cough. Does report some dyspnea on exertion that has been ongoing for several months. GI: Reports some nausea. Denies any diarrhea. Denies any abdominal pain. : Denies dysuria or hematuria. MUSCULOSKELETAL: Reports generalized lower extremity weakness. Reports a fall five days ago. Denies hitting his head. Reports right upper extremity intermittent weakness. Reports that he was dropping things this morning, has since resolved. NEUROLOGIC: See HPI. PHYSICAL EXAMINATION: VITAL SIGNS: Blood pressure 140/80, pulse 63, respirations 18, temperature is 98.6, and O2 saturations 94% on room air. CONSTITUTIONAL: The patient appears nontoxic. The patient appears pain free. He is alert and oriented to person, place, and time. HEENT: Head is atraumatic and normocephalic. Eyes, pupils are equally round and reactive to light. Extraocular muscles are intact. ENT, mouth exam is normal. Mucous membranes are moist. Trachea is midline. RESPIRATORY AND CHEST: Breath sounds are clear. No signs of respiratory distress. CARDIOVASCULAR: Heart rate is regular rate and rhythm. Heart sounds are normal. ABDOMEN: Nontender. Bowel sounds are heard. BACK: Normal inspection. Normal range of motion. No tenderness. EXTREMITIES: Upper extremities, normal range of motion. Motor strength is normal. Sensation is intact bilaterally. Radial pulses also equal bilaterally. Lower extremity, normal range of motion. Motor strength is normal. Sensation is intact bilaterally. Pedal pulse is normal bilaterally. There is some mild erythema and tenderness to palpation over the left great toe. No signs of infection. Reports that is unchanged for the last several weeks. NEUROLOGIC: Minimal expressive aphasia. No slurred speech. Cranial nerves 2 through 12 are grossly intact. Normal strength and sensation to all four extremities. No pronator drift. No ataxia with upper extremity or lower extremity. SKIN: As above. PSYCH: Normal affect. NIH is zero. DIAGNOSTIC DATA: EKG shows a normal sinus rhythm, beats per minute is 73, premature atrial complexes, incomplete right bundle-branch block, ST-T waves are normal. [place] is normal. LABORATORY DATA: Pertinent labs; white blood cell count is 11.4, hemoglobin is 16.3, hematocrit 49.1, platelet count is 300. Chemistry; sodium 142, potassium 4.1, chloride 102, gap is 16, BUN is 30, creatinine is 1.61, estimated GFR is 42, glucose is 105, calcium 10.5. Liver enzymes are unremarkable. ASSESSMENT AND PLAN: 1. Transient ischemic attack symptoms. We will obtain an MRI, carotid Doppler study, and echocardiogram. We will ask Neurology to consult. 2. Hypertension. We will continue home medications. We will monitor blood pressure. 3. Hyperlipidemia. We will continue statin. We will consider an increase depending on which statin he is on. 4. Diabetes, we will continue home medication. We will add a sliding scale insulin protocol while he is hospitalized. 5. Depression. We will continue home medication. 6. Hospital course will be dependent on clinical findings. Job ID: [id number]
--- NOTE | 2018-07-14 20:31 | PDOC.EVN ---
Event Note - Event Note Event Note: Reviewed case with Vicky. Evaluated patient. He is doing better. Has some mild nausea. Otherwise, his headache has resolved and his other neuro symptoms have resolved. [employer] [place] strength is normal. Heart reg, no murmur. Lungs clear. Abdomen benign. Has lacunar infarcts. On a statin, but may need a higher dose. Start ASA. Work up still pending. Will need to assess his balance and gait. May need outpatient PT if compromised.
[2018-07-14] MEDS ORDERED: Atorvastatin Calcium 10 MG TAB PO SCH (21:00)
[2018-07-15 05:28] LABS: #Basophils 0.1 thou/uL (0.0-0.2); #Eosinphils 0.2 thou/uL (0.0-0.7); #Lymphocytes 2.2 thou/uL (1.20-3.40); #Monocytes 0.8 thou/uL (0.11-0.59); #Neutrophils 4.7 thou/uL (1.40-6.50); %Basophils 0.7 % (0.0-1.0); %Eosinophils 3.1 % (0.0-10.0); %Lymphocytes 27.2 % (21.0-51.0); %Monocytes 10.1 % (0.0-10.0); Hemoglobin 13.2 g/dL (14.0-18.0); Mean Corpuscular HGB CONC 33.5 g/dL (32.0-36.0); Mean Corpuscular Hemoglobin 31.6 pg (27.0-31.0); Mean Corpuscular Volume 94.3 fL (78.0-98.0); Platelet Count 238 thou/uL (130-400); RBC Distribution Width 12.1 % (11.5-14.5); Red Blood Cell (RBC) Count 4.18 mill/uL (4.70-6.10); White Blood Cell (WBC) Count 7.9 thou/uL (4.8-10.8)
[2018-07-15 05:48] LABS: ALT (SGPT) 20 U/L (8-55); AST (SGOT) 18 U/L (5-34); Albumin 3.4 g/dL (3.4-4.8); Alkaline Phosphatase 80 U/L (40-150); Anion Gap 14 mmol/L (10-20); BUN (Urea Nitrogen) 21 mg/dL (8.4-25.7); Bilirubin, Total 0.4 mg/dL (0.2-1.2); Calc. Creatinine Clearance 54 mL/min (70-130); Calcium 8.8 mg/dL (7.8-10.44); Carbon Dioxide 25 mmol/L (23-31); Cardiac Risk 3.3 (Less than 4.5); Chloride 105 mmol/L (98-107); Cholesterol 145 mg/dl (< 200 Desired); Estimated GFR-MDRD 50; Globulin 3.2 g/dL (2.4-3.5); Glucose 282 mg/dL (83-110); HDL Cholesterol 44 mg/dL (>60 Neg Risk); LDL Cholesterol, Calculated 69 mg/dL; Potassium 4.5 mmol/L (3.5-5.1); Protein, Total 6.6 g/dL (5.8-8.1); Sodium 139 mmol/L (136-145); Triglycerides 162 mg/dL (Less than 150)
[2018-07-15] MEDS ORDERED: Acetaminophen 325 MG TAB PO PRN (08:09)
[2018-07-15] MEDS: Amlodipine 10 MG TAB PO SCH (08:28)
[2018-07-15] MEDS: HumuLIN 70/30 (300 UNITS/3 ML VIAL) SC SCH ×2 (08:28→17:07)
[2018-07-15] MEDS: Ondansetron PF 4 MG/2 ML Vial IVP PRN ×2 (08:29→15:23)
[2018-07-15] MEDS: Citalopram 20 MG TAB PO SCH (08:29)
[2018-07-15] MEDS: Famotidine 20 MG TAB PO SCH (08:29)
[2018-07-15] MEDS: Metoprolol Tartrate 25 MG TAB PO SCH (08:29)
[2018-07-15] MEDS: Aspirin 325 mg Enteric Coated Tablet PO SCH (08:29)
[2018-07-15] MEDS: Enoxaparin Sodium 40 MG/0.4 ML SYRINGE SC SCH (08:30)
--- NOTE | 2018-07-15 13:23 | CT ---
CT OF HEAD NONCONTRAST CTA HEAD WITH CONTRAST WITH 3D REFORMATTED IMAGING: CLINICAL HISTORY: Recent fall. History of progressive numbness, tingling, and headaches with TIA/CVA symptoms. FINDINGS: A noncontrast head CT does not reveal evidence of intracranial hemorrhage, mass effect, or midline sh ift. There is mild prominence to the ventricular system likely on the basis of age-related parenchym al volume loss. Mild chronic ischemic disease is present. The visualized distal vertebral arteries are patent. There is minimal calcification of the distal right vertebral artery. There is a mild sh ort segment narrowing of the basilar artery which may relate to noncalcified plaque. 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 Otherwise, each LAUNDRY SUPERINTENDENT is patent. The visualized distal ICA revealed mil d calcification bilaterally without high-grade stenosis or occlusion. No high-grade stenosis or occl usion of either MCA. There is markedly diminutive A1 segment right ICA with A2 segment of right ICA receiving supply via the ACOM. The left anterior cerebral artery is patent. No discrete intracrania l aneurysm is seen. No discrete aneurysm is seen within limitations of technique. IMPRESSION: Scattered mild intracranial vascular disease, without high-grade stenosis or occlusion. POS: [facility]
[2018-07-15] MEDS: HumaLOG 300 UNITS/3 ML VIAL SC PRN (14:10)
--- NOTE | 2018-07-15 15:02 | PDOC.PN ---
- Subjective Encounter Start Date: 07/15/18 Encounter Start Time: 10:30 Subjective: Patient resting, has returned from CT for CTA brain/neck -: Reports 2-3 episodes of trouble finding words since admission -: Reports feeling nauseated. - Objective Vital Signs & Weight: Vital Signs (12 hours) Temp Pulse Pulse Pulse Resp BP BP 07/15/18 11:43 98.2 F 69 15 07/15/18 10:00 94 138/63 127/60 07/15/18 08:45 82 89 153/70 H 151/69 H 07/15/18 08:28 76 07/15/18 07:37 98.2 F 76 15 07/15/18 04:04 98.5 F 77 18 BP Pulse Ox 07/15/18 11:43 119/56 L 94 L 07/15/18 10:00 07/15/18 08:45 07/15/18 08:28 07/15/18 07:37 157/72 H 94 L 07/15/18 04:04 150/66 H 92 L Weight Weight 87.634 kg I&O: 07/14/18 07/15/18 07/16/18 06:59 06:59 06:59 Intake Total 1842 Output Total 1325 Balance 517 Result Diagrams: 07/15/18 04:44 07/15/18 04:44 Additional Labs: Accuchecks 07/15/18 07/14/18 07/14/18 10:36 20:53 17:18 POC Glucose 294 H 160 H 278 H Phys Exam - Physical Examination HEENT: PERRLA, moist MMs Neck: no nodes, no JVD Respiratory: clear to auscultation bilateral Cardiovascular: RRR, no significant murmur Gastrointestinal: soft, non-tender Musculoskeletal: no edema, pulses present Neurological: moves all 4 limbs decreased sensation to right extremities Has trouble finding the words during exam Psychiatric: normal affect, A&O x 3 Skin: no rash, normal turgor Dx/Plan (1) CVA (cerebral vascular accident) Code(s): I63.9 - CEREBRAL INFARCTION, UNSPECIFIED Status: Acute (2) Diabetes mellitus, type II, insulin dependent Code(s): E11.9 - TYPE 2 DIABETES MELLITUS WITHOUT COMPLICATIONS; Z79.4 - NEEDLE BAR MOLDER (CURRENT) USE OF INSULIN Status: Chronic (3) Dyslipidemia Code(s): E78.5 - HYPERLIPIDEMIA, UNSPECIFIED Status: Chronic (4) Hypertension Code(s): I10 - ESSENTIAL (PRIMARY) HYPERTENSION Status: Chronic - Plan Awaiting Neuro consult and echo results -: MRI with tiny lacunar infart on left hemisphere -: Patient agreeable to inp rehab screening, re weakness, speech -: Will continue to monitor labs/vs * .
[2018-07-15] MEDS ORDERED: Iopamidol 370 76% 100 ML VIAL ONE (16:52)
[2018-07-15] MEDS ORDERED: Atorvastatin Calcium 40 MG TAB PO SCH (21:00)
--- NOTE | 2018-07-16 00:24 | CON ---
DATE OF CONSULTATION: CHIEF COMPLAINT: The patient with right hand numbness. HISTORY OF PRESENT ILLNESS: Daughter was in the room and was able to help us with his medical history. The patient began having some difficulties for at least 3 years or so. About 3 years ago, his second and he had to move in with his daughter and she noticed he had mild tremor and he also has become depressed and had lack of interest in any activities. He developed some memory problems for the last 2 years or so. In the last 6 months, he has had word-finding difficulties. His hand tremor gradually got worse and he tends to spill food and coffee. The event that brought him to the hospital is right hand numbness starting yesterday morning and he also had some weakness. He has been sick to his stomach. He fell last Thursday and got worse. He has had tremor and wobbliness for 1 year. His arm numbness is now resolved. He could not talk for about an hour yesterday and he was brought to the ER. While some of these symptoms are progressive, his primary issue right now is right-sided numbness which came and resolved. He does not sleep well at night. He is also not sleeping at full stretch per daughter. Daughter wanted clarification on many of his medical issues and also was concerned about a stroke, therefore, brought him to the hospital. PREVIOUS MEDICAL HISTORY: He was hospitalized at the end of April for diabetes. He had angioplasty in the left leg 6 months ago. Appendectomy 40 years ago. He also has hypertension, diabetes for 30 years, high cholesterol, and depression. He had a minor stroke 20 years ago. FAMILY HISTORY: His mother at 79 from cerebral aneurysm. Father is not known to the patient. His brother in 2000. He had 11 step siblings and half siblings. There is no known tremor in the family, but daughter has mild tremor. SOCIAL HISTORY: His first in 1995 at age 55. He remarried and then his second passed 3 years ago. 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 He does not drink alcohol. He chews tobacco. REVIEW OF SYSTEMS: Unreliable due to the patient's confusion and inability to even give us a full medical history. LABORATORY DATA: White count 7.9, hemoglobin 13.2, hematocrit 39.5, and platelets 238. His sodium 139, potassium 4.5, chloride 105, bicarb 25, BUN 21, and creatinine 1.38. Liver functions are within normal limits. Cholesterol panel was normal. His MRI of the brain was reported as few tiny acute lacunar infarcts in the left cerebral hemisphere. I requested a CT angiogram of the head and CTA of the head showed scattered mild intracranial vascular stem disease without high-grade stenosis or occlusion and his carotid Dopplers was negative. PHYSICAL EXAMINATION: VITAL SIGNS: Blood pressure 127/60, pulse 94, and temperature 98.2. NEUROLOGIC: Well-built, well-nourished gentleman who was sitting up in bed. He is responsive to conversation, but he tends to get confused during the conversation and was oriented to place and person, but I am not sure whether he is very accurate with his orientation to time. He simply read the date from the chalk board in front of him. Cranial nerves II through XII normal. Pupils reactive. No facial asymmetry. Normal sensation of face. Normal hearing. Tongue midline. No atrophy. Normal elevation of palate. Motor bulk normal. Tone normal. Strength 5/5 throughout in upper and lower extremities in iliopsoas, hamstrings, quadriceps, ankle dorsiflexion, plantar flexion, deltoid, biceps, triceps, wrist extension, flexion, finger extension, and flexion bilaterally. His sensory examination normal to touch and proprioception. Deep tendon reflexes 1+ throughout. Cerebellar exam, mild incoordination in the left upper extremity. Involuntary movements; he had bilateral upper extremity tremor, primarily 2+ action tremor which was flexion-extension tremor. IMPRESSION: The patient is a 77-year-old man with right-sided numbness, which resolved completely and his MRI is abnormal showing several small infarcts, but his CT angio does not show any occlusive vascular disease. His echocardiogram is pending. His clinical examination was normal except for cognitive impairment, whether this is pseudodementia due to depression or multi-infarct dementia needs to be evaluated further. This can be done as an outpatient. He also has bilateral essential tremor, which needs treatment as well. TREATMENT PLAN: I suggested that we start him on aspirin. I requested the CTA and I noted the results as above. I discussed with the daughter and requested her to take him to a neurologist once we are discharged him from the hospital, so he can receive further evaluation for his dementia and also additional treatment for his tremor. Please call me if you have any further questions. I will see him on an as-needed basis. Job ID: [id number]
[2018-07-16 06:03] LABS: #Basophils 0.1 thou/uL (0.0-0.2); #Eosinphils 0.3 thou/uL (0.0-0.7); #Lymphocytes 2.2 thou/uL (1.20-3.40); #Monocytes 1.1 thou/uL (0.11-0.59); #Neutrophils 4.8 thou/uL (1.40-6.50); %Basophils 0.6 % (0.0-1.0); %Eosinophils 3.5 % (0.0-10.0); %Lymphocytes 26.4 % (21.0-51.0); %Monocytes 12.6 % (0.0-10.0); Hemoglobin 13.4 g/dL (14.0-18.0); Mean Corpuscular HGB CONC 33.2 g/dL (32.0-36.0); Mean Corpuscular Hemoglobin 31.4 pg (27.0-31.0); Mean Corpuscular Volume 94.5 fL (78.0-98.0); Mean Platelet Volume 7.7 fL (7.4-10.4); Platelet Count 239 thou/uL (130-400); Red Blood Cell (RBC) Count 4.26 mill/uL (4.70-6.10); White Blood Cell (WBC) Count 8.4 thou/uL (4.8-10.8)
[2018-07-16 06:24] LABS: ALT (SGPT) 18 U/L (8-55); AST (SGOT) 18 U/L (5-34); Albumin 3.5 g/dL (3.4-4.8); Alkaline Phosphatase 79 U/L (40-150); Anion Gap 12 mmol/L (10-20); BUN (Urea Nitrogen) 15 mg/dL (8.4-25.7); Bilirubin, Total 0.6 mg/dL (0.2-1.2); Calc. Creatinine Clearance 57 mL/min (70-130); Calcium 9.2 mg/dL (7.8-10.44); Carbon Dioxide 29 mmol/L (23-31); Chloride 104 mmol/L (98-107); Estimated GFR-MDRD 53; Globulin 3.1 g/dL (2.4-3.5); Glucose 160 mg/dL (83-110); Protein, Total 6.6 g/dL (5.8-8.1); Sodium 141 mmol/L (136-145)
[2018-07-16] MEDS: HumaLOG 300 UNITS/3 ML VIAL SC PRN ×2 (07:22→11:10)
[2018-07-16] MEDS: Aspirin 325 mg Enteric Coated Tablet PO SCH (09:07)
[2018-07-16] MEDS: Amlodipine 10 MG TAB PO SCH (09:07)
[2018-07-16] MEDS: Enoxaparin Sodium 40 MG/0.4 ML SYRINGE SC SCH (09:07)
[2018-07-16] MEDS: Citalopram 20 MG TAB PO SCH (09:07)
[2018-07-16] MEDS: Famotidine 20 MG TAB PO SCH (09:07)
[2018-07-16] MEDS: Metoprolol Tartrate 25 MG TAB PO SCH (09:07)
[2018-07-16] MEDS: HumuLIN 70/30 (300 UNITS/3 ML VIAL) SC SCH ×2 (09:08→16:31)
[2018-07-16 11:45] VITALS: TEMP 98.6
--- NOTE | 2018-07-16 14:45 | PQF ---
DATE: 07-16-18 ATTN: CAROL ZHANG CADDY MASTER Please exercise your independent, professional judgment in responding to the clarification form. Clinical indicators are provided on the bottom of this form for your review Please check appropriate box(s): [ ] Acute Renal Failure (ARF) / Acute Kidney Injury (GABY) [ ] Insignificant Lab Values [ ] Other diagnosis [ ] Unable to determine In addition, please specify: Present on Admission (POA): [ ] Yes [ ] No [ ] Unable to determine National Kidney Foundation Guidelines for CKD Staging Stage I Kidney damage with normal or increased GFR GFR > 90 Stage II Kidney damage with mildly decreased GFR GFR 60-89 Stage III Kidney damage with moderately decreased GFR GFR 30-59 Stage IV Kidney damage with severely decreased GFR GFR 16-29 Stage V Kidney failure GFR<15 ESRD End Stage Renal Disease On dialysis Acute Renal Failure/Acute Kidney Failure defined as: Increases in SCr by (>) 0.3 mg/dl within 48 hours OR- Increases in SCr by (>) 1.5 times baseline, known or presumed to have occurred within the prior 7 days OR- Urine volume < 0.5 ml/kg/hour for 6 hours (KDIGO supplement 2012 for RIFLE/ISMA criteria) For continuity of documentation, please document condition throughout progress notes and discharge summary. Thank You. CLINICAL INDICATORS - SIGNS / SYMPTOMS / LABS GFR: 07-14-18: 42 07-15-18: 50 07-16-18: 53 CREATININE: 07-14-18: 1.61 07-15-18: 1.38 07-16-18: 1.31 BUN: 07-14-18: 30 07-15-18: 21 07-16-18: 15 H&P: WEAKNESS, NAUSEA RISK FACTORS: H&P: HX OF DM 2, HTN, HYPERCHOLESTEREMIA, HOME MEDS: AMLODIPINE, NOVOLIN , METOPROLOL,CELEXA TREATMENTS: ER: NS IVF MAR: NS IVF (This form is maintained as a part of the permanent medical record) 2014 [employer]. All Rights Reserved LAURA [email or web address] Office: [phone] [facility]
[2018-07-16 15:33] VITALS: BP 120/67
--- NOTE | 2018-07-16 16:50 | PRG ---
DATE OF SERVICE: CHIEF COMPLAINT: Numbness of the right side. INTERVAL HISTORY: The patient reports he is doing well at this time and he is pending transfer to rehab center today, and his stroke workup has been completed. STROKE WORKUP: Echocardiogram report shows EF of 60% to 65%. Grade 2 to 3 diastolic dysfunction. Moderately dilated left atrium. Mild annular calcification. Mild mitral regurgitation. His CT angiography was completed yesterday and did not show any focal stenosis, but he does have scattered mild intracranial vascular disease without high-grade stenosis or occlusion. His laboratory workup shows white count 8.4, hemoglobin 13.4, hematocrit 40.2, platelet count 239. Chemistry; sodium 141, potassium 4, chloride 109, bicarb 29, BUN 15, creatinine 1.31. PHYSICAL EXAMINATION: VITAL SIGNS: Blood pressure 120/67, temperature 98.6, pulse 70. GENERAL APPEARANCE: A well-built, well-nourished man. NEUROLOGIC: He is oriented to place, person and time, missed the date. Cranial nerves; he has normal extraocular movements. No facial asymmetry. Normal sensation of face. Tongue midline. Motor exam; bulk normal. Tone normal. Strength is 5/5 in both upper and lower extremities. No sensory deficit noted. IMPRESSION: The patient with transient right-sided numbness and some scattered small infarct in the left cortical area. However, his CT angiography does not show any evidence of focal arterial stenosis, which is now not a big concern based on the imaging and a scattered few tiny foci of restricted diffusion in the left cerebral hemisphere is more likely to be lacunar infarct due to changes in his blood pressure. At this time, I do think he is safe to go to rehabilitation center. I already discussed with his daughter yesterday that he does need outpatient neurology followup. Please call if you have any further questions. Job ID: [id number]
--- NOTE | 2018-07-24 20:11 | EKG ---
Test Reason : Blood Pressure : / mmHG Vent. Rate : 073 BPM Atrial Rate : 073 BPM P-R Int : 182 ms QRS Dur : 092 ms QT Int : 394 ms P-R-T Axes : 055 -10 008 degrees QTc Int : 434 ms Sinus rhythm with Premature atrial complexes Incomplete right bundle branch block Borderline ECG Confirmed by ALYSSA WEATHERS ([id number]), slot editor REBECCA UMANZOR ([id number]) on 07/24/2018 8:10:48 PM Referred By: Confirmed By:ALYSSA WEATHERS
== END 2018-07-16 17:17 | DRG 66 ==
LOC: ERS 11:03 → ERHOLD 13:41 → 2SW 15:49 → OBSVTOIN 07-15 08:14 → 2SE 07-15 14:54
PROVIDERS: ADMIT Emergency Medicine; ATTEND Emergency Medicine
DX: I63.81 Other cerebral infarction due to occlusion or stenosis of small artery (principal); I10 Essential (primary) hypertension; E78.5 Hyperlipidemia, unspecified; E11.9 Type 2 diabetes mellitus without complications; F32.9 Major depressive disorder, single episode, unspecified; Z79.4 Long term (current) use of insulin
CPT/HCPCS: 36415; 36416; 70450; 70496; 70551; 71045; 80053; 80061; 85025; 93005; 93306; 93880; 96360; 96361; J1650; J1815; J2405; Q0162

== ENCOUNTER 2020-08-22 04:39 | Emergency (ER) | payer MEDICARE | END 2020-08-22 07:35 | disposition home or self-care (01) | LOC: ERS 04:39 | DX: E11.649 Type 2 diabetes mellitus with hypoglycemia without coma (principal); R29.700 NIHSS score 0; I10 Essential (primary) hypertension; E78.00 Pure hypercholesterolemia, unspecified; F17.220 Nicotine dependence, chewing tobacco, uncomplicated; Z79.899 Other long term (current) drug therapy; Z86.73 Personal history of transient ischemic attack (TIA), and cerebral infarction without residual deficits; Z79.4 Long term (current) use of insulin | CPT/HCPCS: 36416; 99285 ==

== ENCOUNTER 2020-11-09 07:42 | Inpatient (IN) | payer MEDICARE ==
[2020-11-09 08:17] LABS: #Eosinphils 0.2 thou/uL (0.0-0.7); #Lymphocytes 2.2 thou/uL (1.20-3.40); #Monocytes 1.1 thou/uL (0.11-0.59); #Neutrophils 6.8 thou/uL (1.40-6.50); %Basophils 0.3 % (0.0-1.0); %Eosinophils 2.3 % (0.0-10.0); %Lymphocytes 20.9 % (21.0-51.0); %Monocytes 10.5 % (0.0-10.0); %Neutrophils 66.1 % (42.0-75.0); Hemoglobin 10.6 g/dL (14.0-18.0); Mean Corpuscular HGB CONC 32.1 g/dL (32.0-36.0); Mean Corpuscular Volume 93.4 fL (78.0-98.0); Mean Platelet Volume 7.7 fL (7.4-10.4); Platelet Count 448 thou/uL (130-400); RBC Distribution Width 13.2 % (11.5-14.5); Red Blood Cell (RBC) Count 3.55 mill/uL (4.70-6.10); White Blood Cell (WBC) Count 10.3 thou/uL (4.8-10.8)
[2020-11-09] MEDS ORDERED: Mag-Al 1200 mg/1200 mg/30 ML UDCUP ONE (08:29)
[2020-11-09] MEDS ORDERED: Lidocaine Viscous Sol 2% 15 ml UD Cup ONE (08:29)
[2020-11-09 08:35] LABS: ALT (SGPT) 14 U/L (8-55); AST (SGOT) 57 U/L (5-34); Albumin 3.3 g/dL (3.4-4.8); Alkaline Phosphatase 115 U/L (40-110); Anion Gap 13 mmol/L (10-20); BUN (Urea Nitrogen) 24 mg/dL (8.4-25.7); Bilirubin, Total 0.6 mg/dL (0.2-1.2); Calc. Creatinine Clearance 0 mL/min (70-130); Calcium 8.9 mg/dL (7.8-10.44); Carbon Dioxide 30 mmol/L (23-31); Chloride 98 mmol/L (98-107); Globulin 3.6 g/dL (2.4-3.5); Glucose 187 mg/dL (83-110); Potassium 4.3 mmol/L (3.5-5.1); Protein, Total 6.9 g/dL (5.8-8.1); Sodium 137 mmol/L (136-145)
[2020-11-09 09:22] LABS: CKMB 47.8 ng/mL (0-6.6)
[2020-11-09] MEDS ORDERED: Enoxaparin Sodium 80 MG/0.8 ML SYRINGE ONE (09:28)
[2020-11-09 11:30] LABS: Troponin I 3.105 ng/mL (< 0.028)
[2020-11-09] MEDS ORDERED: Dextrose 5% in Water 1,000 ML IV PRN (11:36)
[2020-11-09] MEDS ORDERED: Dextrose 50% Abboject 50 ML SYRINGE SLOW IVP PRN (11:36)
[2020-11-09 11:50] VITALS: BMI 27.3
[2020-11-09] MEDS ORDERED: Aspirin Chewable 81 MG TAB PO SCH ×2 (13:00→14:30)
[2020-11-09] MEDS: Ondansetron PF 4 MG/2 ML Vial IVP PRN ×2 (14:31→23:03)
[2020-11-09 14:45] LABS: Critical Call Chem Troponin I RESULT DECREASING
[2020-11-09] MEDS ORDERED: Iopamidol 370 76% 100 ML VIAL ONE (15:16)
[2020-11-09] MEDS: HumaLOG 300 UNITS/3 ML VIAL SC PRN (17:33)
[2020-11-09] MEDS ORDERED: Famotidine 20 MG TAB PO SCH (21:00)
[2020-11-09] MEDS ORDERED: Atorvastatin Calcium 40 MG TAB PO SCH (21:00)
[2020-11-09] MEDS ORDERED: Acetaminophen 500 MG TAB PO SCH (22:00)
[2020-11-09 23:47] LABS: Troponin I 14.887 ng/mL (< 0.028)
[2020-11-10] MEDS: HumaLOG 300 UNITS/3 ML VIAL SC PRN ×4 (00:02→22:08)
[2020-11-10] MEDS ORDERED: Nitroglycerin 0.4 MG TAB (25 Tab Bottle) SL PRN (00:38)
[2020-11-10 01:15] LABS: SARS-CoV-2 PCR by NAA Not Detected (NotDetected)
[2020-11-10] MEDS ORDERED: Enoxaparin Sodium 80 MG/0.8 ML SYRINGE SC SCH ×2 (01:25→14:00)
[2020-11-10] MEDS: Acetaminophen 325 MG TAB PO PRN ×2 (02:55→08:30)
[2020-11-10] MEDS: Ondansetron PF 4 MG/2 ML Vial IVP PRN ×3 (06:24→18:06)
[2020-11-10] MEDS: Famotidine 20 MG TAB PO SCH (08:30)
[2020-11-10] MEDS: Aspirin 81 mg Enteric Coated Tablet PO SCH (08:30)
[2020-11-10 10:55] LABS: #Monocytes 1.9 thou/uL (0.11-0.59); #Neutrophils 15.3 thou/uL (1.40-6.50); %Basophils 0.1 % (0.0-1.0); %Eosinophils 0.1 % (0.0-10.0); %Lymphocytes 5.4 % (21.0-51.0); %Monocytes 10.5 % (0.0-10.0); %Neutrophils 83.9 % (42.0-75.0); Hemoglobin 10.7 g/dL (14.0-18.0); Mean Corpuscular HGB CONC 32.8 g/dL (32.0-36.0); Mean Corpuscular Hemoglobin 30.7 pg (27.0-31.0); Mean Corpuscular Volume 93.6 fL (78.0-98.0); Mean Platelet Volume 8.1 fL (7.4-10.4); Platelet Count 412 thou/uL (130-400); RBC Distribution Width 13.3 % (11.5-14.5); Red Blood Cell (RBC) Count 3.49 mill/uL (4.70-6.10); White Blood Cell (WBC) Count 18.3 thou/uL (4.8-10.8)
[2020-11-10] MEDS ORDERED: Iopamidol 370 76% 50 ML VIAL FS ONE (11:02)
[2020-11-10] MEDS ORDERED: Iopamidol 370 76% 100 ML VIAL ONE (11:02)
[2020-11-10 11:14] LABS: Anion Gap 16 mmol/L (10-20); BUN (Urea Nitrogen) 26 mg/dL (8.4-25.7); Calc. Creatinine Clearance 48 mL/min (70-130); Calcium 9.1 mg/dL (7.8-10.44); Carbon Dioxide 27 mmol/L (23-31); Cardiac Risk 2.1 (Less than 4.5); Chloride 98 mmol/L (98-107); Cholesterol 110 mg/dl (< 200 Desired); Glucose 226 mg/dL (83-110); HDL Cholesterol 52 mg/dL (>60 Neg Risk); LDL Cholesterol, Calculated 43 mg/dL; Sodium 136 mmol/L (136-145); Triglycerides 75 mg/dL (Less than 150)
[2020-11-10] MEDS ORDERED: Sodium Chloride 0.9% 1,000 ML IV SCH (11:15)
[2020-11-10] MEDS ORDERED: Lidocaine 1% (PF) 30 ML VIAL ONE ×2 (11:22)
[2020-11-10] MEDS ORDERED: Heparin 10,000 UNITS/ 10 ML VIAL ONE (12:15)
[2020-11-10] MEDS ORDERED: TICAGRELOR 90 MG TABLET ONE (12:23)
[2020-11-10] MEDS ORDERED: Atorvastatin Calcium 40 MG TAB PO SCH (12:51)
[2020-11-10] MEDS ORDERED: Sodium Chloride 0.9% 250 ML IV SCH (13:00)
[2020-11-10] MEDS: Morphine 4 MG/ML VIAL SLOW IVP PRN ×2 (13:41→18:27)
[2020-11-10] MEDS ORDERED: Senokot S 8.6-50 MG TAB PO PRN (15:00)
[2020-11-10] MEDS: TICAGRELOR 90 MG TABLET PO SCH (20:28)
[2020-11-10] MEDS: Tamsulosin HCl 0.4 MG CAP PO SCH (20:28)
[2020-11-11 06:01] LABS: Hemoglobin 9.9 g/dL (14.0-18.0); Mean Corpuscular HGB CONC 31.9 g/dL (32.0-36.0); Mean Corpuscular Volume 93.8 fL (78.0-98.0); Mean Platelet Volume 8.2 fL (7.4-10.4); Platelet Count 408 thou/uL (130-400); RBC Distribution Width 13.3 % (11.5-14.5); White Blood Cell (WBC) Count 18.9 thou/uL (4.8-10.8)
[2020-11-11 06:14] LABS: Band 11 % (5-11); Lymphocytes 6 % (21-51); MDiff Complete? YES; Monocytes 12 % (0-10); Neutrophil 71 % (42-75); Platelet Morphology Comment Appears Increased
[2020-11-11 06:22] LABS: ALT (SGPT) 233 U/L (8-55); AST (SGOT) 339 U/L (5-34); Albumin 3.1 g/dL (3.4-4.8); Alkaline Phosphatase 108 U/L (40-110); Anion Gap 19 mmol/L (10-20); BUN (Urea Nitrogen) 39 mg/dL (8.4-25.7); Bilirubin, Total 1.6 mg/dL (0.2-1.2); Calc. Creatinine Clearance 31 mL/min (70-130); Calcium 8.7 mg/dL (7.8-10.44); Carbon Dioxide 22 mmol/L (23-31); Chloride 97 mmol/L (98-107); Globulin 3.5 g/dL (2.4-3.5); Glucose 354 mg/dL (83-110); Potassium 5.6 mmol/L (3.5-5.1); Protein, Total 6.6 g/dL (5.8-8.1); Sodium 132 mmol/L (136-145)
[2020-11-11] MEDS: HumaLOG 300 UNITS/3 ML VIAL SC PRN ×4 (06:28→21:36)
[2020-11-11] MEDS: Ondansetron PF 4 MG/2 ML Vial IVP PRN ×3 (09:23→19:38)
[2020-11-11] MEDS: Aspirin 81 mg Enteric Coated Tablet PO SCH (09:23)
[2020-11-11] MEDS: HYDROcodone/Acetaminophen 5/325 mg Tablet PO PRN ×2 (09:23→16:09)
[2020-11-11] MEDS: Famotidine 20 MG TAB PO SCH (09:23)
[2020-11-11] MEDS: Escitalopram Oxalate 10 mg Tablet PO SCH (09:24)
[2020-11-11] MEDS: Ferrous Sulfate 325 MG TAB PO SCH (09:24)
[2020-11-11] MEDS: TICAGRELOR 90 MG TABLET PO SCH ×2 (09:24→21:41)
[2020-11-11] MEDS: Aspirin Chewable 81 MG TAB PO SCH (09:25)
[2020-11-11] MEDS: Polyethylene Glycol 3350 17 GM Packet PO SCH (09:33)
[2020-11-11] MEDS ORDERED: DOPamine 400 MG/D5W 250 ML 250 ML ONE (12:10)
[2020-11-11] MEDS ORDERED: DOPamine 400 MG/D5W 250 ML 250 ML IVPB SCH (13:00)
[2020-11-11] MEDS ORDERED: Lantus 1000 UNITS/10 ML VIAL SC SCH (13:20)
[2020-11-11] MEDS ORDERED: Ivabradine 5 MG TAB PO SCH (15:15)
[2020-11-11 16:08] LABS: Anion Gap 19 mmol/L (10-20); BUN (Urea Nitrogen) 46 mg/dL (8.4-25.7); Calc. Creatinine Clearance 26 mL/min (70-130); Calcium 8.6 mg/dL (7.8-10.44); Carbon Dioxide 20 mmol/L (23-31); Chloride 99 mmol/L (98-107); Glucose 352 mg/dL (83-110); Potassium 5.3 mmol/L (3.5-5.1); Sodium 133 mmol/L (136-145)
[2020-11-11] MEDS ORDERED: LOKELMA 10 GM PACKET PO SCH (17:55)
[2020-11-11] MEDS ORDERED: Sodium Chloride 0.9% 1,000 ML IV SCH (18:00)
[2020-11-11] MEDS ORDERED: LOKELMA 5 GM PACKET PO SCH (18:45)
[2020-11-11] MEDS ORDERED: Promethazine HCl 12.5 MG in Sodium Chloride 0.9% 50 ML IVPB SCH (20:15)
[2020-11-11] MEDS: Lantus 1000 UNITS/10 ML VIAL SC SCH (21:37)
[2020-11-11] MEDS: Tamsulosin HCl 0.4 MG CAP PO SCH (21:41)
[2020-11-11] MEDS: Ivabradine 5 MG TAB PO SCH (21:41)
[2020-11-12] MEDS: Morphine 4 MG/ML VIAL SLOW IVP PRN ×3 (01:42→21:13)
[2020-11-12 04:00] LABS: Anion Gap 19 mmol/L (10-20); BUN (Urea Nitrogen) 57 mg/dL (8.4-25.7); Calc. Creatinine Clearance 24 mL/min (70-130); Calcium 8.5 mg/dL (7.8-10.44); Carbon Dioxide 20 mmol/L (23-31); Chloride 101 mmol/L (98-107); Glucose 274 mg/dL (83-110); Potassium 6.2 mmol/L (3.5-5.1); Sodium 134 mmol/L (136-145)
[2020-11-12] MEDS ORDERED: Calcium Gluc 4.6 MEQ/10 ML (100 MG/ML) SLOW IVP SCH (04:22)
[2020-11-12 04:29] LABS: Band 4 % (5-11); Hemoglobin 10.4 g/dL (14.0-18.0); Hypochromia SLIGHT = 6-15 cells (100X) (0-5/hpf); Lymphocytes 6 % (21-51); MDiff Complete? YES; Mean Corpuscular HGB CONC 31.9 g/dL (32.0-36.0); Mean Corpuscular Hemoglobin 29.7 pg (27.0-31.0); Mean Corpuscular Volume 93.2 fL (78.0-98.0); Mean Platelet Volume 8.7 fL (7.4-10.4); Monocytes 10 % (0-10); Neutrophil 80 % (42-75); Platelet Count 452 thou/uL (130-400); Platelet Morphology Comment Appears Increased; RBC Distribution Width 13.3 % (11.5-14.5); Red Blood Cell (RBC) Count 3.51 mill/uL (4.70-6.10); White Blood Cell (WBC) Count 22.4 thou/uL (4.8-10.8)
[2020-11-12] MEDS ORDERED: Insulin Regular 300 UNITS/3 ML VIAL IVP SCH (04:30)
[2020-11-12] MEDS ORDERED: Sodium Bicarbonate 150 MEQ in Dextrose 5% in Water 1,000 ML IV ONE (05:30)
[2020-11-12] MEDS ORDERED: LOKELMA 10 GM PACKET PO SCH (05:30)
[2020-11-12] MEDS ORDERED: LOKELMA 5 GM PACKET PO SCH (05:45)
[2020-11-12] MEDS: Polyethylene Glycol 3350 17 GM Packet PO SCH (08:53)
[2020-11-12] MEDS: Famotidine 20 MG TAB PO SCH (08:53)
[2020-11-12] MEDS: Ferrous Sulfate 325 MG TAB PO SCH (08:53)
[2020-11-12] MEDS: Aspirin Chewable 81 MG TAB PO SCH (08:53)
[2020-11-12] MEDS: Escitalopram Oxalate 10 mg Tablet PO SCH (08:54)
[2020-11-12] MEDS: Ivabradine 5 MG TAB PO SCH ×2 (08:54→22:08)
[2020-11-12] MEDS: TICAGRELOR 90 MG TABLET PO SCH ×2 (08:54→22:08)
[2020-11-12] MEDS: Lantus 1000 UNITS/10 ML VIAL SC SCH ×2 (08:59→22:09)
[2020-11-12] MEDS: Ondansetron PF 4 MG/2 ML Vial IVP PRN ×3 (09:21→21:01)
[2020-11-12 09:42] LABS: Anion Gap 22 mmol/L (10-20); BUN (Urea Nitrogen) 59 mg/dL (8.4-25.7); Calc. Creatinine Clearance 24 mL/min (70-130); Calcium 9.2 mg/dL (7.8-10.44); Carbon Dioxide 22 mmol/L (23-31); Chloride 98 mmol/L (98-107); Glucose 294 mg/dL (83-110); Potassium 5.6 mmol/L (3.5-5.1); Sodium 136 mmol/L (136-145)
[2020-11-12] MEDS ORDERED: Atorvastatin Calcium 40 MG TAB PO SCH (21:00)
[2020-11-13] MEDS: Morphine 4 MG/ML VIAL SLOW IVP PRN ×3 (01:58→14:29)
[2020-11-13] MEDS ORDERED: Lorazepam 2 MG/ML VIAL SLOW IVP SCH (04:45)
[2020-11-13 07:27] LABS: #Lymphocytes 1.1 thou/uL (1.20-3.40); #Monocytes 1.3 thou/uL (0.11-0.59); #Neutrophils 11.4 thou/uL (1.40-6.50); %Eosinophils 0.2 % (0.0-10.0); %Lymphocytes 7.6 % (21.0-51.0); %Monocytes 9.2 % (0.0-10.0); Hemoglobin 8.9 g/dL (14.0-18.0); Mean Corpuscular HGB CONC 32.8 g/dL (32.0-36.0); Mean Corpuscular Hemoglobin 30.6 pg (27.0-31.0); Mean Corpuscular Volume 93.1 fL (78.0-98.0); Mean Platelet Volume 8.9 fL (7.4-10.4); Platelet Count 365 thou/uL (130-400); RBC Distribution Width 13.3 % (11.5-14.5); Red Blood Cell (RBC) Count 2.92 mill/uL (4.70-6.10); White Blood Cell (WBC) Count 13.8 thou/uL (4.8-10.8)
[2020-11-13 07:49] LABS: ALT (SGPT) 1113 U/L (8-55); AST (SGOT) 702 U/L (5-34); Albumin 2.9 g/dL (3.4-4.8); Alkaline Phosphatase 244 U/L (40-110); Anion Gap 18 mmol/L (10-20); BUN (Urea Nitrogen) 77 mg/dL (8.4-25.7); Bilirubin, Direct 1.2 mg/dL (0.1-0.3); Bilirubin, Total 1.7 mg/dL (0.2-1.2); Calc. Creatinine Clearance 18 mL/min (70-130); Calcium 8.3 mg/dL (7.8-10.44); Carbon Dioxide 26 mmol/L (23-31); Chloride 97 mmol/L (98-107); Glucose 373 mg/dL (83-110); Potassium 5.6 mmol/L (3.5-5.1); Protein, Total 6.4 g/dL (5.8-8.1); Sodium 135 mmol/L (136-145)
[2020-11-13] MEDS: Ivabradine 5 MG TAB PO SCH (10:05)
[2020-11-13] MEDS: Famotidine 20 MG TAB PO SCH (10:05)
[2020-11-13] MEDS: Aspirin Chewable 81 MG TAB PO SCH (10:05)
[2020-11-13] MEDS: Ferrous Sulfate 325 MG TAB PO SCH (10:05)
[2020-11-13] MEDS: TICAGRELOR 90 MG TABLET PO SCH (10:06)
[2020-11-13] MEDS: Polyethylene Glycol 3350 17 GM Packet PO SCH (10:06)
[2020-11-13] MEDS: Lantus 1000 UNITS/10 ML VIAL SC SCH (11:49)
[2020-11-13] MEDS: Ondansetron PF 4 MG/2 ML Vial IVP PRN (13:01)
[2020-11-13] MEDS: Escitalopram Oxalate 10 mg Tablet PO SCH (14:32)
[2020-11-13 16:09] VITALS: BP 105/71; TEMP 97.4
== END 2020-11-13 16:04 | disposition hospice, home (50) | DRG 246 ==
LOC: ERS 07:42 → 2SE 09:33 → CCU 11-10 13:05 → T4-B 11-12 18:33
PROVIDERS: ADMIT Hospitalist; ATTEND Internal Medicine
PROC: 027034Z Dilation of Coronary Artery, One Artery with Drug-eluting Intraluminal Device, Percutaneous Approach (ICD-10-PCS; principal; 2020-11-10)
PROC: 02C03ZZ Extirpation of Matter from Coronary Artery, One Artery, Percutaneous Approach (ICD-10-PCS; 2020-11-10)
PROC: 4A023N7 Measurement of Cardiac Sampling and Pressure, Left Heart, Percutaneous Approach (ICD-10-PCS; 2020-11-10)
PROC: B2111ZZ Fluoroscopy of Multiple Coronary Arteries using Low Osmolar Contrast (ICD-10-PCS; 2020-11-10)
PROC: 3E033XZ Introduction of Vasopressor into Peripheral Vein, Percutaneous Approach (ICD-10-PCS; 2020-11-11)
DX: I21.4 Non-ST elevation (NSTEMI) myocardial infarction (principal); R57.0 Cardiogenic shock; N17.9 Acute kidney failure, unspecified; E87.1 Hypo-osmolality and hyponatremia; E87.2 Acidosis; Z66 Do not resuscitate; Z20.822 Contact with and (suspected) exposure to COVID-19; Z51.5 Encounter for palliative care; I25.5 Ischemic cardiomyopathy; E11.51 Type 2 diabetes mellitus with diabetic peripheral angiopathy without gangrene; E78.5 Hyperlipidemia, unspecified; H04.129 Dry eye syndrome of unspecified lacrimal gland; Z96.642 Presence of left artificial hip joint; F03.90 Unspecified dementia, unspecified severity, without behavioral disturbance, psychotic disturbance, mood disturbance, and anxiety; N40.1 Benign prostatic hyperplasia with lower urinary tract symptoms; R33.8 Other retention of urine; R94.5 Abnormal results of liver function studies; R79.89 Other specified abnormal findings of blood chemistry; D63.8 Anemia in other chronic diseases classified elsewhere; E87.6 Hypokalemia; Z79.899 Other long term (current) drug therapy; Z79.4 Long term (current) use of insulin; Z90.49 Acquired absence of other specified parts of digestive tract; Z87.891 Personal history of nicotine dependence; Z95.5 Presence of coronary angioplasty implant and graft
CPT/HCPCS: 36415; 36416; 71045; 71275; 76770; 80048; 80053; 80061; 80076; 82553; 83880; 84484; 85025; 85347; 85379; 87635; 92928; 93005; 93010; 93306; 93458; 94760; 96372; 97139; C1757; C1874; C9600; J1265; J1644; J1650; J1815; J2001; J2060; J2270; J2405; J2550; J7070; Q9967; U0003; U0005